=== PATIENT | male | born 1970 | race African-American/Black ===

== ENCOUNTER 2020-01-09 14:56 | Inpatient (IN) | payer OTHER ==
--- NOTE | 2020-01-09 15:17 | PDOC ---
History of Present Illness - General Chief Complaint: Headache Stated Complaint: SENT BY MD /ABN LABS/FEVER Time Seen by Provider: 01/09/20 15:16 - History of Present Illness Initial Comments: 01/09/20 15:32 49 M with HTN and lupus ( on hydroxychloroquine) came here from [facility] for PE r/o. Patient had elevated d-dimer of 625, and trop of 0.05, ultrasound of right lower extremity which showed negative result per patient. Patient currently denies SOB, chest pain. 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 He took excedrin and didn't help. Endorse photophobia, denies phonophobia. Patient don't usually have headache. He did endorse chest pain misternum about 4 days ago, on and off, no radiation, nonexertional in natural. Patient denies dyspnea, unilat leg swelling, however, did have right ankle swelling a few days ago. Patient had COVID back in August, no intubation needed. PMHX: as in HPI PSHX: none Meds: home meds. Tob: neg Etoh: neg Rec drugs: neg PCP: PCP in [place] [facility]. Resolution Specialist: Alek Rodriges MD. ROS GENERAL/CONSTITUTIONAL:+fever, no chills. No weakness. HEAD, EYES, EARS, NOSE AND THROAT: No change in vision. No ear pain or d ischarge. No sore throat. CARDIOVASCULAR: No chest pain or shortness of breath RESPIRATORY: No cough, wheezing, or hemoptysis. GASTROINTESTINAL: No nausea, vomiting, diarrhea or constipation. GENITOURINARY: No dysuria, frequency, or change in urination. MUSCULOSKELETAL: No joint or muscle swelling or pain. No neck or back pain. SKIN: No rash NEUROLOGIC: + headache, no vertigo, loss of consciousness, or change in strength/sensation. ENDOCRINE: No increased thirst. No abnormal weight change HEMATOLOGIC/LYMPHATIC: No anemia, easy bleeding, or history of blood clots. ALLERGIC/IMMUNOLOGIC: No hives or skin allergy. PE: tachycardic 107, fever of 101.9 (after already had tylenol). GENERAL: Awake, alert, and fully oriented, in no acute distress HEAD: No signs of trauma, normocephalic, atraumatic EYES: PERRLA, EOMI, sclera anicteric, conjunctiva clear ENT: Auricles normal inspection, hearing grossly normal, nares patent, oropharynx clear without exudates. Moist mucosa NECK: Normal ROM, supple, no lymphadenopathy, JVD, or masses LUNGS: No distress, speaks full sentences,right lung base crackle. HEART: Regular rate and rhythm, normal S1 and S2, no murmurs, rubs or gallops, peripheral pulses normal and equal bilaterally. ABDOMEN: Soft, nontender, normoactive bowel sounds. No guarding, no rebound. No masses EXTREMITIES : Normal inspection, Normal range of motion, no edema. No clubbing or cyanosis. NEUROLOGICAL: Cranial nerves II through XII grossly intact. Normal speech, normal gait, no focal sensorimotor deficits SKIN: Warm, Dry, normal turgor, no rashes or lesions noted MDM 49 M with HTN, Lupus (on hydroxychloroquine) presented here for elevated d-dimer and troponin. R/o PE. DDX including but not limited to: PE, ACS, infection. tension headache. W/U: -Labwork, CTA, EKG, LR fluid 1 L. 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 Alek Rodriges From [facility] [phone] (extension).2x . Couldn't get in touch. -EKG: normal sinus rhthym, vent rate 91. no ST elevation. -CTA to rule out PE showed no PE, moderate right lower lobe infiltrate. atelectatic changes left base. There is no 6mm thickness pericardial effusion at the apex. TX: vanco +zosyn +admission. - Patient agrees to stay. PORT Score: 47, risk class 1, 0.1 % mortality. MBMD sent. -elevated Liver enzymes ---RUQ ultrasound. -admit under [facility] 01/09/20 18:42 01/09/20 18:42 01/09/20 19:10 Past History - Medical History Allergies/Adverse Reactions: Allergies Allergy/AdvReac Type Severity Reaction Status Date / Time No Known Drug Allergies Allergy Verified 01/10/20 00:13 ABX AdvReac Severe Hives Uncoded 01/09/20 23:25 Home Medications: Ambulatory Orders Cholecalciferol (Vitamin D3) [Vitamin D -] 50,000 unit PO WEEKLY 01/10/20 Hydroxychloroquine Sulfate [Plaquenil] 400 mg PO DAILY 01/10/20 Losartan Potassium 100 mg PO DAILY 01/10/20 Apixaban [Eliquis] 5 mg PO BID #120 tablet 01/13/20 Cefuroxime Axetil [Ceftin -] 500 mg PO BID 4 Days #8 tablet 01/13/20 Doxycycline Hyclate [Vibramycin -] 100 mg PO BID@1000,1800 3 Days #6 capsule 01/13/20 COPD: No HTN: Yes - Immunization History Immunization Up to Date: No - Psycho-Social/Smoking History Smoking History: Never smoked Information on smoking cessation initiated: No - Substance Abuse Hx (Audit-C & DAST Scrn) How often the patient has a drink containing alcohol: Monthly or less How often the patient has six or more drinks on one occasion: Less than monthly Score: In Men: 4 or > Positive; In Women: 3 or > Positive: 2 Screen Result (Pos requires Nsg. Audit-10AR): Negative In the last yr the pt used illegal drug/Rx for NonMed reason: No Score: Yes response is considered Positive: 0 Screen Result (Positive result requires Nsg. DAST-10): Negative *Physical Exam - Vital Signs Last Vital Signs Temp Pulse Resp BP Pulse Ox 101.9 F H 107 H 20 130/84 97 01/09/20 15:01 01/09/20 15:01 01/09/20 15:01 01/09/20 15:01 01/09/20 15:01 ED Treatment Course - LABORATORY CBC & Chemistry Diagram: 01/13/20 08:45 01/13/20 08:45 Discharge - Discharge Information Problems reviewed: Yes Clinical Impression/Diagnosis: Headache, Fever, Chest pain, Pulmonary emboli Condition: Improved Disposition: HOME - Follow up/Referral - Patient Discharge Instructions - Post Discharge Activity
--- NOTE | 2020-01-09 15:49 | PDOC ---
Attending Attestation - Resident Resident Name: Al Ibarra - ED Attending Attestation I have performed the following: I have examined & evaluated the patient, The case was reviewed & discussed with the resident, I agree w/resident's findings & plan, Exceptions are as noted - HPI HPI: 01/09/20 15:44 49YOM with h/o SLE on hydroxychloroquine, who p/w several weeks of BLE intermittent swelling, non-exertional non-positional chest pain, as sent in by [facility] after having elevated D-dimer (629) and fever of 103 with negative CXR. Patient stated there he was COVID-19 positive back in August 2019. No specific leg with worsened discomfort, no skin changes, no palpitations, no cough or orthopnea. - Physicial Exam PE: 01/09/20 15:47 GENERAL: nontoxic-appearing, A/Ox4, no distress, answers questions jelly ropriately, pleasant adult male HEENT: PERRLA, EOMI, moist mucous membranes NECK/BACK: no midline ttp, no spinal step-off or deformity, no hematoma, full ROM, neck supple CARDIOVASCULAR: rapid regular rate, no MGR, strong peripheral pulses, capillary refill <2 seconds, extremities wwp, no edema LUNGS/RESPIRATORY: no respiratory distress, CTAB GI/ABDOMEN: symmetric [id number], normoactive BS, soft, no ttp, no midline pulsatile masses : no CVA tenderness MSK/EXTREMITIES: minimal posterior pedal edema, no muscle atrophy, no acute deformity SKIN: warm and dry, no pallor, no jaundice, no rash, no pathologic-appearing bruising, no skin breakdown, no cuts, no lesions NEUROLOGICAL: GCS 15, CN II-XII grossly intact, 5/5 strength proximally and distally, no facial droop - Medical Decision Making 01/09/20 15:49 49YOM with h/o SLE on hydroxychloroquine who presents from [facility] with fever, chest pain, BLE minimal swelling for months, and elevated D-dimer on their labs. 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 Initial Vital Signs Temp Pulse Resp BP Pulse Ox 101.9 F H 107 H 20 130/84 97 01/09/20 15:01 01/09/20 15:01 01/09/20 15:01 01/09/20 15:01 01/09/20 15:01 Most likely viral infection with c/f COVID-19 infection, possible PNA/bronchitis although if CXR was negative at [facility] less likely, but will repeat imaging here. Possible PE especially given d-dimer testing at . COPD/asthma/CHF exacerbation or other underlying lung disease possible contributing factor. Less likely influenza, bronchitis, other viral URI, laryngitis, tracheitis, etc. Provider Orders Category Date Time Status CHEST CTA [CT] Stat CT Scan 01/09/20 15:31 Ordered ELECTROCARDIOGRAM [CARD] Stat Cardiology 01/09/20 15:30 Ordered EKG needed NOW Care 01/09/20 15:30 Active Isolation Precautions As directed Care 01/09/20 15:30 Active CBC WITH DIFFERENTIAL Stat Lab 01/09/20 15:30 Uncollected COMP METABOLIC PANEL Stat Lab 01/09/20 15:30 Uncollected COVID-19 Stat Lab 01/09/20 15:30 Uncollected PT & APTT Stat Lab 01/09/20 15:32 Uncollected Troponin [CARDIAC PROFILE ([facility])] Stat Lab 01/09/20 15:31 Uncollected Lactated Ringers Solution Medication 01/09/20 15:52 Once 1,000 ml IV ONCE ONE IV Insert NOW Phy Order 01/09/20 15:41 Active Medications Generic Name Dose Route Start Last Admin Trade Name Freq PRN Reason Stop Dose Admin Lactated Ringer's 1,000 ml 01/09/20 15:52 Lactated Ringers Solution IV 01/09/20 15:53 ONCE ONE Patient is well appearing, do not anticipate admission unless workup yields PE or other serious diagnosis. Patient's care endorsed to ED team at the end of my shift pending results of workup, will decide on dispo based on findings. Heart Score/ECG Review #1 Sinus rhythm, rate 91, normal axis and intervals, no ischemic ST-T changes Discharge - Discharge Information Problems reviewed: Yes Clinical Impression/Diagnosis: Headache, Fever, Chest pain, Pulmonary emboli Condition: Guarded - Admission Yes - Follow up/Referral - Patient Discharge Instructions - Post Discharge Activity
[2020-01-09] MEDS ORDERED: LACTATED RINGERS SOLUTION 1000 ML INFUS.BAG IV ONE (15:52)
[2020-01-09 16:14] LABS: BASO % 0.7 % (0-2.0); EOS % 0.1 % (0-4.5); LYMPH % 4.9 % (8-40); MCH 29.4 pg (25.7-33.7); MCHC 33.4 g/dl (32.0-35.9); MEAN CELL VOLUME 88.1 fl (80-96); MEAN PLT VOLUME 8.9 fl (7.5-11.1); MONO % 4.7 % (3.8-10.2); NEUT % 89.6 % (42.8-82.8); PLATELET COUNT 130 K/MM3 (134-434); RBC 4.77 M/mm3 (4.00-5.60); RDW 13.3 % (11.9-15.9); WHITE BLOOD COUNT 12.9 K/mm3 (4.0-10.0)
[2020-01-09 16:20] LABS: INR 1.34 (0.83-1.09); PROTHROMBIN TIME (PATIENT) 15.9 SEC (9.7-13.0)
[2020-01-09 16:49] LABS: ALBUMIN 3.1 g/dl (3.4-5.0); BILIRUBIN,TOTAL 0.4 mg/dL (0.2-1); CALCIUM 8.8 mg/dL (8.5-10.1); CREATININE 1.7 mg/dL (0.55-1.3); POTASSIUM 4.3 mmol/L (3.5-5.1); TOT PROT 7.5 g/dl (6.4-8.2)
[2020-01-09] MEDS ORDERED: VANCOMYCIN 1 GM in D5W (PRE-DOCKED) 1,000 MG/250 ML IVPB ONE (17:34)
[2020-01-09] MEDS ORDERED: PIPERACILLIN/TAZOB 3.375 GM 3.375 GM in DEXTROSE 5%-WATER - 50 ML IVPB ONE (17:34)
[2020-01-09] MEDS ORDERED: PIPERACILLIN/TAZOB 3.375 GM 3.375 GM/50 ML BAG IVPB ONE (18:24)
[2020-01-09] MEDS ORDERED: ACETAMINOPHEN 325 MG TABLET (FP) PO ONE (18:37)
--- NOTE | 2020-01-09 19:00 | PDOC ---
*Physical Exam - Vital Signs Last Vital Signs Temp Pulse Resp BP Pulse Ox 101.9 F H 107 H 20 130/84 97 01/09/20 15:01 01/09/20 15:01 01/09/20 15:01 01/09/20 15:01 01/09/20 15:01 ED Treatment Course - LABORATORY CBC & Chemistry Diagram: 01/09/20 16:06 01/09/20 16:06 - ADDITIONAL ORDERS Additional order review: Laboratory Results 01/09/20 01/09/20 01/09/20 16:06 16:06 16:06 PT with INR 15.90 H INR 1.34 H PTT (Actin FS) 33.0 Sodium 138 Potassium 4.3 Chloride 103 Carbon Dioxide 28 Anion Gap 6 L BUN 12.0 Creatinine 1.7 H Est GFR (CKD-EPI)AfAm 54.45 Est GFR (CKD-EPI)NonAf 46.98 Random Glucose 116 H Calcium 8.8 Total Bilirubin 0.4 AST 99 H ALT 90 H Alkaline Phosphatase 121 H Creatine Kinase 137 Troponin I < 0.02 Total Protein 7.5 Albumin 3.1 L 01/09/20 16:06 RBC 4.77 MCV 88.1 MCHC 33.4 RDW 13.3 MPV 8.9 Neutrophils % 89.6 H Lymphocytes % 4.9 L Monocytes % 4.7 Eosinophils % 0.1 Basophils % 0.7 Medical Decision Making - Medical Decision Making 01/09/20 19:00 CTA RLL PNA SLE vanc zosyn DICKSON? fluids had covid get admit Discharge - Discharge Information Clinical Impression/Diagnosis: Headache, Fever, Chest pain - Follow up/Referral Referrals: ON STAFF,NOT [Primary Care Provider] - - Patient Discharge Instructions - Post Discharge Activity
[2020-01-09 19:20] LABS: URINE APPEARANCE CLEAR; URINE COLOR YELLOW
[2020-01-09 19:21] LABS: URINE BILIRUBIN NEGATIVE (NEGATIVE); URINE GLUCOSE (UA) NEGATIVE (NEGATIVE); URINE KETONE NEGATIVE (NEGATIVE); URINE LEUK ESTERASE NEGATIVE (NEGATIVE); URINE NITRITE NEGATIVE (NEGATIVE); URINE PROTEIN 100 (NEGATIVE); URINE RBC 26.8 /uL (0-23.9)
[2020-01-09 19:22] LABS: EPI CELLS 26.5 /uL (0-25.1); URINE BACTERIA 45.8 /uL (0-1359); URINE WBC 82.8 /uL (0-25.8)
--- NOTE | 2020-01-09 19:27 | PN ---
Teaching Attending Note Name of Resident: Sree Haddad ATTENDING PHYSICIAN STATEMENT I saw and evaluated the patient. I reviewed the resident's note and discussed the case with the resident. I agree with the resident's findings and plan as documented. SUBJECTIVE: Patient is a 49 year old man with a PMH of COVID-19 infection (August 2019; not hospitalized), Childhood asthma, Rheumatoid arthritis, HTN and SLE (on hydroxychloroquine) presents from [facility] for workup to rule out pulmonary embolism. He went to [facility] for several weeks of BLE intermittent swelling, non-exertional, non-positional chest pain and was noted to have elevated D-dimer (629) and fever of 103 with negative CXR. Troponin was 0.05 and ultrasound of right lower extremity was negative for DVT. Patient currently denies SOB, chest pain. 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 He took excedrin and didn't help. Endorse photophobia, denies phonophobia. Patient don't usually have headache. Patient denies abdominal pain, headache, nausea, vomiting, diarrhea, constipation, dysuria, frequency, urgency, melena, hematochezia or hematuria. Denies alcohol, tobacco or illicit drug use. No sick contacts or recent travels. Family history of DM in mother and brother. OBJECTIVE: Alert Vital Signs Period Temp Pulse Resp BP Sys/Baugh Pulse Ox Last 24 Hr 101.9 F-102.6 F 107 20 130/84 97 HEENT: No Jaundice, eye redness or discharge, PERRLA, EOMI. Normocephalic, atraumatic. External ears are normal and hearing is grossly intact. No nasal discharge. Neck: Supple, nontender. No palpable adenopathy or thyromegaly. No JVD Chest: Good effort. Clear to auscultation and percussion. Heart: Regular. No S3, rub or murmur Abdomen: Not distended, soft, nontender and no HSM. No rebound or guarding. Normal bowel sounds. Ext: Peripheral pulses intact. No leg edema. Skin: Warm and dry. No petechiae, rash or ecchymosis. Neuro: Alert. Oriented x3. CN 2-12 grossly intact. Sensation grossly intact in all four extremities and DTR are symmetric. Psych: Appropriate mood and affect. Good insight. Current Medications Generic Name Dose Route Start Last Admin Trade Name Zohra PRN Reason Stop Dose Admin Acetaminophen 975 mg 01/09/20 18:37 01/09/20 19:32 Tylenol - PO 01/09/20 18:38 975 mg ONCE ONE Administration Piperacillin Sod/Tazobactam 50 mls @ 100 mls/hr 01/09/20 17:34 01/09/20 19:09 Sod 3.375 gm/ Dextrose IVPB 01/09/20 18:03 100 mls/hr ONCE ONE Administration Protocol Lactated Ringer's 1,000 ml 01/09/20 15:52 01/09/20 16:19 Lactated Ringers Solution IV 01/09/20 15:53 1,000 ml ONCE ONE Administration Vancomycin HCl 1,000 mg 01/09/20 17:34 01/09/20 18:30 Vancomycin (Pre-Docked) IVPB 01/09/20 17:35 1,000 mg ONCE ONE Administration Protocol Abnormal Lab Results 01/09/20 01/09/20 01/09/20 16:06 16:06 16:06 WBC 12.9 H Plt Count 130 L Absolute Neuts (auto) 11.5 H Neutrophils % 89.6 H Lymphocytes % 4.9 L PT with INR 15.90 H INR 1.34 H Anion Gap 6 L Creatinine 1.7 H Random Glucose 116 H AST 99 H ALT 90 H Alkaline Phosphatase 121 H Albumin 3.1 L Ur Specific [place] Urine Blood 01/09/20 18:40 WBC Plt Count Absolute Neuts (auto) Neutrophils % Lymphocytes % PT with INR INR Anion Gap Creatinine Random Glucose AST ALT Alkaline Phosphatase Albumin Ur Specific [place] 1.047 H Urine Blood 1+ H Current Medications Generic Name Dose Route Start Last Admin Trade Name Zohra PRN Reason Stop Dose Admin Acetaminophen 975 mg 01/09/20 18:37 01/09/20 19:32 Tylenol - PO 01/09/20 18:38 975 mg ONCE ONE Administration Heparin Sodium (Porcine) 5,000 unit 01/09/20 23:30 Heparin - SQ TID KENYA Piperacillin Sod/Tazobactam 50 mls @ 100 mls/hr 01/09/20 17:34 01/09/20 19:09 Sod 3.375 gm/ Dextrose IVPB 01/09/20 18:03 100 mls/hr ONCE ONE Administration Protocol Lactated Ringer's 1,000 ml 01/09/20 15:52 01/09/20 16:19 Lactated Ringers Solution IV 01/09/20 15:53 1,000 ml ONCE ONE Administration Vancomycin HCl 1,000 mg 01/09/20 17:34 01/09/20 18:30 Vancomycin (Pre-Docked) IVPB 01/09/20 17:35 1,000 mg ONCE ONE Administration Protocol ASSESSMENT AND PLAN: 1. Sepsis due to Pneumonia - CTA chest/thorax showed no PE, but moderate right lower lobe infiltrate, atelectatic changes in left base and pericardial effusion. Sepsis workup done and patient started on IV Vancomycin, IV Zosyn and will give IV NS. Concerned about meningitis - consulted Neurology - will get a head CT stat, add IV Ceftriaxone 2 gm to current regimen and consult IR for spinal tap. Consult ID, Rheumatology and Cardiology. Elevated LFTs are unexplained. Will get upper abdominal sonogram, hepatitis serology and trend LFTs. EKG shows NSR at 91/minute and QTc [address]-T wave changes. Troponin here is negative. Viral testing for COVID-19 ordered and patient placed on airborne, droplet and contact isolation. Will continue comprehensive care for all of patients comorbid conditions including SLE care. 2. Hypoalbuminemia - Possibly due to combined effects of proteinuria, malnutrition and inflammation associated with comorbid conditions. Will ensure adequate dietary protein intake and also consult beauty operator. 3. DICKSON Cause unclear. Will get kidney sonogram, hydrate gently, monitor urine output and consult Nephrology. Avoid nephrotoxic agents such as NSAIDS, aminoglycosides, contrast dyes and certain Alternative medicine products. 4. Obesity Counseled on the risks associated with obesity. Will provide patient all the necessary assistance, counseling and positive reinforcement to facilitate weight loss. Consult beauty operator. 5. DVT prophylaxis - Heparin 5000u sq tid. 6. Advance directives - Full code
--- NOTE | 2020-01-09 23:15 | HP ---
CHIEF COMPLAINT: PCP: HISTORY OF PRESENT ILLNESS: 49 YO M PMH HTN, lupus (on hydroxychloroquine), COVID + in 08/2019 (was not hospitalized), rheumatoid arthritis (L hip) childhood asthma presents to ED from [facility] to r/o Pulmonary emobolism. Pt had 2 nights of 8/10 pressure- like constant headache, that was associated with photophobia. This is the first the patient developed a headache like this and the patient does not usually have head pains like this. Pt was painting a room the day the headache first started. He then developed a fever afterwards, and starting getting chills last night that prompted the patient to seek care urgencare. At UrgentCare he was found to have a 103F, elevated D dimer of 625. CXR was negative for acute pathology and ultrasound of the legs ruled out PE. Denies myalgias, CP, SOB. Denies recent travel. C/o complains of intermittent non-exertional, nonradiating Chest pain/pressure that began 4 days go. Described as a being "Punched in the stomach." Also, c/o chronic intermittent RLE swelling at the lateral malleolus. Endorses that the edema first started after his COVID had resolved. He has been taking 5 mg steroids daily for the past month, which he reported improved his edema. Denied leg pain. 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 mother of COVID Allergies ABX Adverse Reaction (Severe, Uncoded 01/09/20 23:12) Hives Pt states he had abx that caused hives in 1997, pt does not recall abx name HOME MEDICATIONS: REVIEW OF SYSTEMS CONSTITUTIONAL: Absent: fever, chills, diaphoresis, generalized weakness, malaise, loss of appetite, weight change HEENT: Absent: rhinorrhea, nasal congestion, throat pain, throat swelling, difficulty swallowing, mouth swelling, ear pain, eye pain, visual changes CARDIOVASCULAR: Absent: chest pain, syncope, palpitations, irregular heart rate, lightheadedness, peripheral edema RESPIRATORY: Absent: cough, shortness of breath, dyspnea with exertion, orthopnea, wheezing, stridor, hemoptysis GASTROINTESTINAL: Absent: abdominal pain, abdominal distension, nausea, vomiting, diarrhea, constipation, melena, hematochezia GENITOURINARY: Absent: dysuria, frequency, urgency, hesitancy, hematuria, flank pain, genital pain MUSCULOSKELETAL: Absent: myalgia, arthralgia, joint swelling, back pain, neck pain SKIN: Absent: rash, itching, pallor HEMATOLOGIC/IMMUNOLOGIC: Absent: easy bleeding, easy bruising, lymphadenopathy, frequent infections ENDOCRINE: Absent: unexplained weight gain, unexplained weight loss, heat intolerance, cold intolerance NEUROLOGIC: Absent: headache, focal weakness or paresthesias, dizziness, unsteady gait, seizure, mental status changes, bladder or bowel incontinence PSYCHIATRIC: Absent: anxiety, depression, suicidal or homicidal ideation, hallucinations. PHYSICAL EXAMINATION Vital Signs - 24 hr 01/09/20 01/09/20 01/09/20 15:01 18:50 20:14 Temperature 101.9 F H 102.6 F H 103.2 F H Pulse Rate 107 H 107 H Respiratory 20 18 Rate Blood Pressure 130/84 139/75 O2 Sat by Pulse 97 95 Oximetry (%) GENERAL: Awake, alert, and fully oriented, in no acute distress. HEAD: Normal with no signs of trauma. EYES: Pupils equal, round and reactive to light, extraocular movements intact, sclera anicteric, conjunctiva clear. No lid lag. EARS, NOSE, THROAT: Ears normal, nares patent, oropharynx clear without exudat es. Moist mucous membranes. NECK: Normal range of motion, supple. LUNGS: R lung base crackle. Wheezing in R upper lobe. No accessory muscle use. HEART: Regular rate and rhythm, normal S1 and S2 without murmur, rub or gallop. ABDOMEN: Soft, nontender, not distended, normoactive bowel sounds MUSCULOSKELETAL: Normal range of motion at all joints. No bony deformities or tenderness. No CVA tenderness. UPPER EXTREMITIES: 2+ pulses, warm, well-perfused. No cyanosis. No clubbing. No peripheral edema. LOWER EXTREMITIES: 2+ pulses, warm, well-perfused. No calf tenderness. No peripheral edema. NEUROLOGICAL: Cranial nerves II-XII intact. Normal speech. Normal gait. PSYCHIATRIC: Cooperative. Good eye contact. Appropriate mood and affect. Laboratory Results - last 24 hr 01/09/20 01/09/20 01/09/20 16:06 16:06 16:06 WBC 12.9 H RBC 4.77 Hgb 14.0 Hct 42.0 MCV 88.1 MCH 29.4 MCHC 33.4 RDW 13.3 Plt Count 130 L MPV 8.9 Absolute Neuts (auto) 11.5 H Neutrophils % 89.6 H Lymphocytes % 4.9 L Monocytes % 4.7 Eosinophils % 0.1 Basophils % 0.7 Nucleated RBC % 0 PT with INR 15.90 H INR 1.34 H PTT (Actin FS) 33.0 Sodium Potassium Chloride Carbon Dioxide Anion Gap BUN Creatinine Est GFR (CKD-EPI)AfAm Est GFR (CKD-EPI)NonAf Random Glucose Calcium Total Bilirubin AST ALT Alkaline Phosphatase Creatine Kinase 137 Troponin I < 0.02 Total Protein Albumin Urine Color Urine Appearance Urine pH Ur Specific [place] Urine Protein Urine Glucose (UA) Urine Ketones Urine Blood Urine Nitrite Urine Bilirubin Urine Urobilinogen Ur Leukocyte Esterase Urine WBC (Auto) Urine RBC (Auto) U Epithel Cells (Auto) Urine Bacteria (Auto) 01/09/20 01/09/20 16:06 18:40 WBC RBC Hgb Hct MCV MCH MCHC RDW Plt Count MPV Absolute Neuts (auto) Neutrophils % Lymphocytes % Monocytes % Eosinophils % Basophils % Nucleated RBC % PT with INR INR PTT (Actin FS) Sodium 138 Potassium 4.3 Chloride 103 Carbon Dioxide 28 Anion Gap 6 L BUN 12.0 Creatinine 1.7 H Est GFR (CKD-EPI)AfAm 54.45 Est GFR (CKD-EPI)NonAf 46.98 Random Glucose 116 H Calcium 8.8 Total Bilirubin 0.4 AST 99 H ALT 90 H Alkaline Phosphatase 121 H Creatine Kinase Troponin I Total Protein 7.5 Albumin 3.1 L Urine Color Yellow Urine Appearance Clear Urine pH 6.0 Ur Specific [place] 1.047 H Urine Protein 100 Urine Glucose (UA) Negative Urine Ketones Negative Urine Blood 1+ H Urine Nitrite Negative Urine Bilirubin Negative Urine Urobilinogen 1.0 Ur Leukocyte Esterase Negative Urine WBC (Auto) 82.8 Urine RBC (Auto) 26.8 U Epithel Cells (Auto) 26.5 Urine Bacteria (Auto) 45.8 EKG: NSR, 91 bpm, QTC 393 ASSESSMENT/PLAN: 49 YO M PMH HTN, lupus (on hydroxychloroquine), COVID + in 08/2019 (was not hospitalized), rheumatoid arthritis (L hip) childhood asthma presents to ED from [facility] to r/o Pulmonary embolism. Found to be septic 2/2 possibly PNA VS COVID vs meningitis. . #Sepsis 2/2 PNA Vs COVID vs Meningitis -102.6 F, HR 107, WBCs 12.9 - CTA: Moderate R lower lobe infiltrate, atelectaic changes L base -Started on IV vanc & zosyn -concerned about meningitis. ordered CTH -d/w neurology: -f/u ucx, blood cx -2 gm ceftriaxone -ESR -CRP -IBRAHIMA -f/u ID, rheum c/s -consult IR for spinal tap -f/u COVID. at urgent care center, d dimer 625. H/o COVID + #Transaminitis -unexplained. trend LFTs -f/u RUQ US -f/u hep panel #DICKSON Cr 1.7 -kidney US -NS@75 ml/hr -Avoid nephrotoxic agents #Hypoalbuminemia -f/u 2/2 possibly to proteinuria or inflammation. 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 - New Patient This patient is new to me today: Yes Date on this admission: 01/09/20 - Critical Care Critical Care patient: No ATTENDING PHYSICIAN STATEMENT I saw and evaluated the patient. I reviewed the resident's note and discussed the case with the resident. I agree with the resident's findings and plan as documented. SUBJECTIVE: OBJECTIVE: ASSESSMENT AND PLAN:
[2020-01-10] MEDS ORDERED: ACETAMINOPHEN 325 MG TABLET (FP) PO ONE ×2 (00:04→06:27)
[2020-01-10] MEDS ORDERED: CEFTRIAXONE 2 GM in DEXTROSE 5%-WATER - 50 ML IVPB ONE (00:15)
[2020-01-10] MEDS ORDERED: DEXTROSE 5%-WATER - 50 ML IVPB ONE ×2 (00:18→09:21)
[2020-01-10] MEDS: SODIUM CHLORIDE 1,000 ML IV SCH (01:03)
[2020-01-10] MEDS: HEPARIN NA (PORCINE) 5,000 UNITS/ML 1ML VIAL SQ SCH ×4 (01:05→21:38)
--- NOTE | 2020-01-10 08:09 | CON.CARD ---
Consult Consult Specialty:: cardio - History of Present Illness Chief Complaint: SLADE History of Present Illness: 49 YO M PMH HTN, lupus (on hydroxychloroquine), COVID + in 08/2019 (was not hospitalized), rheumatoid arthritis (L hip) childhood asthma presents to ED from [facility] to r/o Pulmonary embolism. PT had 2 nights of 8/10 pressure-like constant headache, that was associated with photophobia. This is the first the patient developed a headache like this and the patient does not usually have head pains like this. He then developed a fever afterwards, and starting getti ng chills last night that prompted the patient to seek care urgencare. Denies myalgias, CP, SOB. At Urgent Care he was found to have a 103F, elevated D dimer of 625. CXR was negative for acute pathology and ultrasound of the legs ruled out PE. Denies recent travel. Also complains of intermittent non-exertional, nonradiating Chest pain. occured 5d ago, ? after drinking energy drink. located upper abdomen/lower rib margin, non-radiating. came and went, mild intensity. continued until 1 day GLASS SANDER BELT--none at present. no bloating, nausea. no assctd sob. "sharp pain" in this area occurred this AM, fleeting duration for couple seconds. currently feels well. denies any known recent Covid + contacts. ER course was notable for: (1) 102.6 F, HR 107, RR20 (2) WBCs 12.9 (3) Cr 1.7 (4) AST/ALT 99/90, Alkphos 121 (5) CTA: Moderate R lower lobe infiltrate, atelectaic changes L base - Smoking History Smoking history: Never smoked Have you smoked in the past 12 months: No Home Medications - Allergies Allergies/Adverse Reactions: Allergies Allergy/AdvReac Type Severity Reaction Status Date / Time No Known Drug Allergies Allergy Verified 01/10/20 00:13 ABX AdvReac Severe Hives Uncoded 01/09/20 23:25 Vital Signs: Vital Signs Temperature 103.1 F H 01/10/20 06:00 Pulse Rate 112 H 01/10/20 06:00 Respiratory Rate 18 01/10/20 06:00 Blood Pressure 138/80 01/10/20 06:00 O2 Sat by Pulse Oximetry (%) 96 01/10/20 06:29 - Other Data Labs, Other Data: CBC, BMP 01/09/20 16:06 01/09/20 16:06 INR, PTT INR 1.34 (0.83-1.09) H 01/09/20 16:06 Troponin, BNP 01/09/20 01/10/20 16:06 01:45 Troponin I < 0.02 < 0.02 Troponin, BNP 01/09/20 01/10/20 16:06 01:45 Troponin I < 0.02 < 0.02 Assessment/Plan ECG: NSR, WNL CT chest, prelim: RLL infiltrate SLADE, hi fever, DICKSON, mild elevation LFTs, elevated d-Dimer, atypical CP: -describes subxiphoid location, atypical sx. -infiltrate on CT chest--receiving abx--per hospitalist (may explain upper abdominal discomfort) -s/p Covid 09/13, current sx's suspious as well--f/u office CT read, f/u Covid PCR -trop neg x 2, ECG normal--no further cardiac w/u indicated -O2 sat 90% warren--supplemental NC oxygen as doing -baseline renal fxn unknown--monitor trend HTN: -bp controlled here SLE: -per hospitalist
[2020-01-10] MEDS ORDERED: PIPERACILLIN/TAZOB 3.375 GM 3.375 GM in DEXTROSE 5%-WATER - 50 ML IVPB ONE (08:17)
[2020-01-10 08:25] LABS: BASO % 0.6 % (0-2.0); EOS % 0.2 % (0-4.5); HEMOGLOBIN 13.1 GM/dL (11.7-16.9); LYMPH % 3.6 % (8-40); MCHC 33.7 g/dl (32.0-35.9); MEAN CELL VOLUME 86.1 fl (80-96); MEAN PLT VOLUME 9.1 fl (7.5-11.1); MONO % 5.6 % (3.8-10.2); PLATELET COUNT 115 K/MM3 (134-434); RBC 4.53 M/mm3 (4.00-5.60); RDW 13.3 % (11.9-15.9); WHITE BLOOD COUNT 11.7 K/mm3 (4.0-10.0)
[2020-01-10] MEDS ORDERED: ACETAMINOPHEN 1000 MG/100 ML VIAL (NON FORMULARY) IVPB PRN (08:48)
[2020-01-10 09:07] LABS: ALBUMIN 2.4 g/dl (3.4-5.0); BILIRUBIN,TOTAL 0.7 mg/dL (0.2-1); BLOOD UREA NITROGEN 8.7 mg/dL (7-18); CALCIUM 8.2 mg/dL (8.5-10.1); CREATININE 1.5 mg/dL (0.55-1.3); MAGNESIUM 1.9 mg/dL (1.8-2.4); PHOSPHOROUS 2.5 mg/dL (2.5-4.9); POTASSIUM 4.1 mmol/L (3.5-5.1); TOT PROT 6.4 g/dl (6.4-8.2)
[2020-01-10] MEDS ORDERED: PIPERACILLIN/TAZOBACTAM 3.375 GM VIAL IVPB ONE (09:21)
[2020-01-10] MEDS ORDERED: CEFTRIAXONE 2 GM in DEXTROSE 5%-WATER 100 ML IVPB SCH (10:00)
--- NOTE | 2020-01-10 13:36 | PN ---
Physical Exam: SUBJECTIVE: Patient seen and examined. He reports headache is resolved. When lying in bed, he does not experience chest pain or shortness of breath. OBJECTIVE: Vital Signs Period Temp Pulse Resp BP Sys/Baugh Pulse Ox Last 24 Hr 100.4 F-103.2 F 96-112 18-20 130-153/75-87 90-98 GENERAL: A&Ox3, not in distress. HEAD: Atraumatic. EYES: PERRL, EOM intact. ENT: Ears normal, nares patent, moist mucous membranes. NECK: Trachea midline, full range of motion, negative Brudzinski sign. LUNGS: Clear to auscultation bilaterally. HEART: RRR, no murmur. ABDOMEN: Soft, nontender, nondistended, normoactive bowel sounds. EXTREMITIES: Warm, well-perfused, no edema. NEUROLOGICAL: Cranial nerves II through XII grossly intact. Normal speech. PSYCH: Normal mood, normal affect. SKIN: Warm, dry, normal turgor, no rashes or lesions noted. Laboratory Results - last 24 hr 01/09/20 01/09/20 01/09/20 16:06 16:06 16:06 WBC 12.9 H RBC 4.77 Hgb 14.0 Hct 42.0 MCV 88.1 MCH 29.4 MCHC 33.4 RDW 13.3 Plt Count 130 L MPV 8.9 Absolute Neuts (auto) 11.5 H Neutrophils % 89.6 H Lymphocytes % 4.9 L Monocytes % 4.7 Eosinophils % 0.1 Basophils % 0.7 Nucleated RBC % 0 ESR PT with INR 15.90 H INR 1.34 H PTT (Actin FS) 33.0 Sodium Potassium Chloride Carbon Dioxide Anion Gap BUN Creatinine Est GFR (CKD-EPI)AfAm Est GFR (CKD-EPI)NonAf Random Glucose Calcium Phosphorus Magnesium Total Bilirubin AST ALT Alkaline Phosphatase Creatine Kinase 137 Troponin I < 0.02 C-Reactive Protein Total Protein Albumin Urine Color Urine Appearance Urine pH Ur Specific [place] Urine Protein Urine Glucose (UA) Urine Ketones Urine Blood Urine Nitrite Urine Bilirubin Urine Urobilinogen Ur Leukocyte Esterase Urine WBC (Auto) Urine RBC (Auto) U Epithel Cells (Auto) Urine Bacteria (Auto) COVID-19 (AIDE) 01/09/20 01/09/20 01/09/20 16:06 18:15 18:40 WBC RBC Hgb Hct MCV MCH MCHC RDW Plt Count MPV Absolute Neuts (auto) Neutrophils % Lymphocytes % Monocytes % Eosinophils % Basophils % Nucleated RBC % ESR PT with INR INR PTT (Actin FS) Sodium 138 Potassium 4.3 Chloride 103 Carbon Dioxide 28 Anion Gap 6 L BUN 12.0 Creatinine 1.7 H Est GFR (CKD-EPI)AfAm 54.45 Est GFR (CKD-EPI)NonAf 46.98 Random Glucose 116 H Calcium 8.8 Phosphorus Magnesium Total Bilirubin 0.4 AST 99 H ALT 90 H Alkaline Phosphatase 121 H Creatine Kinase Troponin I C-Reactive Protein Total Protein 7.5 Albumin 3.1 L Urine Color Yellow Urine Appearance Clear Urine pH 6.0 Ur Specific [place] 1.047 H Urine Protein 100 Urine Glucose (UA) Negative Urine Ketones Negative Urine Blood 1+ H Urine Nitrite Negative Urine Bilirubin Negative Urine Urobilinogen 1.0 Ur Leukocyte Esterase Negative Urine WBC (Auto) 82.8 Urine RBC (Auto) 26.8 U Epithel Cells (Auto) 26.5 Urine Bacteria (Auto) 45.8 COVID-19 (AIDE) Not detected 01/10/20 01/10/20 01/10/20 01:45 01:45 01:45 WBC RBC Hgb Hct MCV MCH MCHC RDW Plt Count MPV Absolute Neuts (auto) Neutrophils % Lymphocytes % Monocytes % Eosinophils % Basophils % Nucleated RBC % ESR 90 H PT with INR INR PTT (Actin FS) Sodium Potassium Chloride Carbon Dioxide Anion Gap BUN Creatinine Est GFR (CKD-EPI)AfAm Est GFR (CKD-EPI)NonAf Random Glucose Calcium Phosphorus Magnesium Total Bilirubin AST ALT Alkaline Phosphatase Creatine Kinase Troponin I < 0.02 C-Reactive Protein 33.3 H Total Protein Albumin Urine Color Urine Appearance Urine pH Ur Specific [place] Urine Protein Urine Glucose (UA) Urine Ketones Urine Blood Urine Nitrite Urine Bilirubin Urine Urobilinogen Ur Leukocyte Esterase Urine WBC (Auto) Urine RBC (Auto) U Epithel Cells (Auto) Urine Bacteria (Auto) COVID-19 (AIDE) 01/10/20 01/10/20 07:42 07:42 WBC 11.7 H RBC 4.53 Hgb 13.1 Hct 39.0 MCV 86.1 MCH 29.0 MCHC 33.7 RDW 13.3 Plt Count 115 L MPV 9.1 Absolute Neuts (auto) 10.6 H Neutrophils % 90.0 H Lymphocytes % 3.6 L D Monocytes % 5.6 Eosinophils % 0.2 D Basophils % 0.6 Nucleated RBC % 0 ESR PT with INR INR PTT (Actin FS) Sodium 139 Potassium 4.1 Chloride 106 Carbon Dioxide 23 Anion Gap 11 BUN 8.7 Creatinine 1.5 H Est GFR (CKD-EPI)AfAm 63.34 Est GFR (CKD-EPI)NonAf 54.65 Random Glucose 96 Calcium 8.2 L Phosphorus 2.5 Magnesium 1.9 Total Bilirubin 0.7 AST 76 H ALT 88 H Alkaline Phosphatase 140 H Creatine Kinase Troponin I C-Reactive Protein Total Protein 6.4 Albumin 2.4 L Urine Color Urine Appearance Urine pH Ur Specific [place] Urine Protein Urine Glucose (UA) Urine Ketones Urine Blood Urine Nitrite Urine Bilirubin Urine Urobilinogen Ur Leukocyte Esterase Urine WBC (Auto) Urine RBC (Auto) U Epithel Cells (Auto) Urine Bacteria (Auto) COVID-19 (AIDE) Active Medications Generic Name Dose Route Start Last Admin Trade Name Freq PRN Reason Stop Dose Admin Acetaminophen 1,000 mg 01/10/20 08:48 Ofirmev Injection - IVPB 01/11/20 08:48 Q8H PRN FEVER Heparin Sodium (Porcine) 5,000 unit 01/09/20 23:30 01/10/20 06:12 Heparin - SQ 5,000 unit TID KENYA Administration Sodium Chloride 1,000 mls @ 75 mls/hr 01/09/20 23:45 01/10/20 01:03 Normal Saline - IV 75 mls/hr ASDIR KENYA Administration Ceftriaxone Sodium 2 gm/ 100 mls @ 100 mls/hr 01/11/20 10:00 Dextrose IVPB DAILY KENYA Protocol ASSESSMENT/PLAN: Pt is a 49 y/o male with HTN, SLE (on hydroxychloroquine), COVID + in 08/2019 (treated at home), OA (L hip) who presents to ED from [facility] to r/o Pulmonary embolism. Pt was found to be septic. #Sepsis 2/2 PNA vs less likely meningitis vs less likely PE -improvement in fever with Tylenol and ice packs -leukocytosis still present (11.7) but improving -CTA: Moderate R lower lobe infiltrate, atelectaic changes L base, no evidence of PE, small pericardial effusion -elevated ESR/CRP -doxycycline -ceftriaxone -neurology consult for SLADE -pulmonary consult for dyspnea -ID consult for abx recs -rheum consult for SLE recs -cardiology consult for small pericardial effusion- not symptomatic -IR consult for LP -f/u COVID. at urgent care center, d dimer 625. H/o COVID + -echo #Transaminitis -U/S- non-specific gallbladder wall thickening which could be acute/chronic cholecystitis or hepatitis or systemic disease, no stone observed -hepatitis panel ordered -monitor labs #DICKSON -Cr 1.7 -renal U/S- equivocal slightly increased right renal cortical echogenicity which could be on the basis of medical disease -nephrology consult- obtain records, unsure of baseline #SLE -continue hydroxychloroquine -monitor QTc #osteoarthritis -Tylenol DVT ppx Heparin sq TID FEN -NS@75 ml/hr -monitor lytes -sodium controlled diet dispo med/surg FULL CODE Visit type - Emergency Visit Emergency Visit: Yes ED Registration Date: 01/09/20 Care time: The patient presented to the Emergency Department on the above date and was hospitalized for further evaluation of their emergent condition. - New Patient This patient is new to me today: Yes Date on this admission: 01/10/20 - Critical Care Critical Care patient: No ATTENDING PHYSICIAN STATEMENT I saw and evaluated the patient. I reviewed the resident's note and discussed the case with the resident. I agree with the resident's findings and plan as documented. SUBJECTIVE: OBJECTIVE: ASSESSMENT AND PLAN:
--- NOTE | 2020-01-10 14:22 | CON.ID ---
Consult - History of Present Illness History of Present Illness: 49 y.o. male with PMH of RA, SLE on Hydroxychloroquine, renal insufficiency, COVID + in August 2019 (fever at the time, treated with Zpak, resolved) , and obesity presents with c/o fever, H/A, intermittent chest pain and LE swelling. States he began experiencing chest discomfort (mainly Rt sided, intermittent, lasting about 5 min, about 2x/day) several days ago along with intermittent LE swelling (since COVID diagnosis as per pt) . His headaches have been constant and severe, located mainly "behind eyes" and in frontal region. 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 He denies neck stiffness but reports photophobia. Was seen in Urgent care 2 days ago and noted to have temp of 103F and sent to the ER yesterday. CXR without infiltrates and RLE US reportedly negative for DVT. In the ER, he was febrile to 103.1F with mild leukocytosis. O2 sat at one point 90%. Chest CT reveals a RLL infiltrate. Creatinine and LFTs slightly elevated with US notable for mild GB wall thickening without evidence of stones. Started on empiric antibiotics. Currently he states he is feeling better with less intense SLADE. Had temp of 102F this a.m. At bedside noted to be coughing and producing thick yellow phlegm. No shortness of breath, 99% O2 sat on RA. No current chest pain. - History Source History Provided By: Patient Limitations to Obtaining History: No Limitations - Past Medical History Infectious Disease: Yes: Other (COVID + , August 2019) Rheumatology: Yes: Lupus, Rheumatoid Arthritis - Smoking History Smoking history: Never smoked Have you smoked in the past 12 months: No - Social History Usual Living Arrangement: With Significant Other History of Recent Travel: No Home Medications - Allergies Allergies/Adverse Reactions: Allergies Allergy/AdvReac Type Severity Reaction Status Date / Time No Known Drug Allergies Allergy Verified 01/10/20 00:13 ABX AdvReac Severe Hives Uncoded 01/09/20 23:25 Review of Systems - Review of Systems Constitutional: reports: Fever Eyes: reports: No Symptoms Neck: reports: No Symptoms Cardiovascular: reports: No Symptoms Respiratory: reports: Cough Gastrointestinal: reports: No Symptoms Genitourinary: reports: No Symptoms Musculoskeletal: reports: No Symptoms Integumentary: reports: No Symptoms Neurological: reports: Headache (minimal) Endocrine: reports: No Symptoms Hematology/Lymphatic: reports: No Symptoms Psychiatric: reports: No Symptoms Physical Exam Vital Signs: Vital Signs Temperature 100.4 F H 01/10/20 12:35 Pulse Rate 96 H 01/10/20 12:35 Respiratory Rate 20 01/10/20 12:35 Blood Pressure 153/87 01/10/20 12:35 O2 Sat by Pulse Oximetry (%) 98 01/10/20 12:35 Constitutional: Yes: Well Nourished, No Distress, Calm Eyes: Yes: Conjunctiva Clear, EOM Intact HENT: Yes: Atraumatic, Normocephalic Neck: Yes: Supple Cardiovascular: Yes: Tachycardia Respiratory: Yes: Diminished (slightly in Rt base) Gastrointestinal: Yes: Normal Bowel Sounds, Soft Renal/: Yes: WNL Musculoskeletal: Yes: WNL Extremities: Yes: WNL Edema: No Integumentary: Yes: WNL Neurological: Yes: Alert, Oriented Psychiatric: Yes: Alert Labs: CBC, BMP 01/10/20 07:42 01/10/20 07:42 Laboratory Tests 01/09/20 01/09/20 01/09/20 16:06 16:06 16:06 WBC 12.9 H RBC 4.77 Hgb 14.0 Hct 42.0 MCV 88.1 MCH 29.4 MCHC 33.4 RDW 13.3 Plt Count 130 L MPV 8.9 Absolute Neuts (auto) 11.5 H Neutrophils % 89.6 H Lymphocytes % 4.9 L Monocytes % 4.7 Eosinophils % 0.1 Basophils % 0.7 Nucleated RBC % 0 ESR PT with INR 15.90 H INR 1.34 H PTT (Actin FS) 33.0 Sodium Potassium Chloride Carbon Dioxide Anion Gap BUN Creatinine Est GFR (CKD-EPI)AfAm Est GFR (CKD-EPI)NonAf Random Glucose Calcium Phosphorus Magnesium Total Bilirubin AST ALT Alkaline Phosphatase Creatine Kinase 137 Troponin I < 0.02 C-Reactive Protein Total Protein Albumin Urine Color Urine Appearance Urine pH Ur Specific [place] Urine Protein Urine Glucose (UA) Urine Ketones Urine Blood Urine Nitrite Urine Bilirubin Urine Urobilinogen Ur Leukocyte Esterase Urine WBC (Auto) Urine RBC (Auto) U Epithel Cells (Auto) Urine Bacteria (Auto) COVID-19 (AIDE) 01/09/20 01/09/20 01/09/20 16:06 18:15 18:40 WBC RBC Hgb Hct MCV MCH MCHC RDW Plt Count MPV Absolute Neuts (auto) Neutrophils % Lymphocytes % Monocytes % Eosinophils % Basophils % Nucleated RBC % ESR PT with INR INR PTT (Actin FS) Sodium 138 Potassium 4.3 Chloride 103 Carbon Dioxide 28 Anion Gap 6 L BUN 12.0 Creatinine 1.7 H Est GFR (CKD-EPI)AfAm 54.45 Est GFR (CKD-EPI)NonAf 46.98 Random Glucose 116 H Calcium 8.8 Phosphorus Magnesium Total Bilirubin 0.4 AST 99 H ALT 90 H Alkaline Phosphatase 121 H Creatine Kinase Troponin I C-Reactive Protein Total Protein 7.5 Albumin 3.1 L Urine Color Yellow Urine Appearance Clear Urine pH 6.0 Ur Specific [place] 1.047 H Urine Protein 100 Urine Glucose (UA) Negative Urine Ketones Negative Urine Blood 1+ H Urine Nitrite Negative Urine Bilirubin Negative Urine Urobilinogen 1.0 Ur Leukocyte Esterase Negative Urine WBC (Auto) 82.8 Urine RBC (Auto) 26.8 U Epithel Cells (Auto) 26.5 Urine Bacteria (Auto) 45.8 COVID-19 (AIDE) Not detected 01/10/20 01/10/20 01/10/20 01:45 01:45 01:45 WBC RBC Hgb Hct MCV MCH MCHC RDW Plt Count MPV Absolute Neuts (auto) Neutrophils % Lymphocytes % Monocytes % Eosinophils % Basophils % Nucleated RBC % ESR 90 H PT with INR INR PTT (Actin FS) Sodium Potassium Chloride Carbon Dioxide Anion Gap BUN Creatinine Est GFR (CKD-EPI)AfAm Est GFR (CKD-EPI)NonAf Random Glucose Calcium Phosphorus Magnesium Total Bilirubin AST ALT Alkaline Phosphatase Creatine Kinase Troponin I < 0.02 C-Reactive Protein 33.3 H Total Protein Albumin Urine Color Urine Appearance Urine pH Ur Specific [place] Urine Protein Urine Glucose (UA) Urine Ketones Urine Blood Urine Nitrite Urine Bilirubin Urine Urobilinogen Ur Leukocyte Esterase Urine WBC (Auto) Urine RBC (Auto) U Epithel Cells (Auto) Urine Bacteria (Auto) COVID-19 (AIDE) 01/10/20 01/10/20 07:42 07:42 WBC 11.7 H RBC 4.53 Hgb 13.1 Hct 39.0 MCV 86.1 MCH 29.0 MCHC 33.7 RDW 13.3 Plt Count 115 L MPV 9.1 Absolute Neuts (auto) 10.6 H Neutrophils % 90.0 H Lymphocytes % 3.6 L D Monocytes % 5.6 Eosinophils % 0.2 D Basophils % 0.6 Nucleated RBC % 0 ESR PT with INR INR PTT (Actin FS) Sodium 139 Potassium 4.1 Chloride 106 Carbon Dioxide 23 Anion Gap 11 BUN 8.7 Creatinine 1.5 H Est GFR (CKD-EPI)AfAm 63.34 Est GFR (CKD-EPI)NonAf 54.65 Random Glucose 96 Calcium 8.2 L Phosphorus 2.5 Magnesium 1.9 Total Bilirubin 0.7 AST 76 H ALT 88 H Alkaline Phosphatase 140 H Creatine Kinase Troponin I C-Reactive Protein Total Protein 6.4 Albumin 2.4 L Urine Color Urine Appearance Urine pH Ur Specific [place] Urine Protein Urine Glucose (UA) Urine Ketones Urine Blood Urine Nitrite Urine Bilirubin Urine Urobilinogen Ur Leukocyte Esterase Urine WBC (Auto) Urine RBC (Auto) U Epithel Cells (Auto) Urine Bacteria (Auto) COVID-19 (AIDE) Imaging - Results Cat Scan: Report Reviewed Ultrasound: Report Reviewed Problem List - Problems (1) Lupus Code(s): M32.9 - SYSTEMIC LUPUS ERYTHEMATOSUS, UNSPECIFIED (2) Rheumatoid arthritis Code(s): M06.9 - RHEUMATOID ARTHRITIS, UNSPECIFIED (3) Chest pain Code(s): R07.9 - CHEST PAIN, UNSPECIFIED (4) Fever Code(s): R50.9 - FEVER, UNSPECIFIED (5) Headache Code(s): R51 - HEADACHE (6) Pneumonia Code(s): J18.9 - PNEUMONIA, UNSPECIFIED ORGANISM (7) CKD (chronic kidney disease) Code(s): N18.9 - CHRONIC KIDNEY DISEASE, UNSPECIFIED Assessment/Plan 49 y.o. male with PMH of RA, SLE on Hydroxychloroquine, COVID + in August 2019, and obesity presents with c/o fever x 2 days, constant H/A, intermittent chest pain x 4 days CAP Lupus RA CKD Elevated LFTs Hx of COVID-19 -- continue Ceftriaxone, add Doxycycline -- follow up blood cultures, send urine ag for pneum/legionella -- monitor LFTs/renal function, f/u hepatitis serology -- monitor wbc/temp trends -- headaches resolving, no clear meningeal signs - continue monitor -- COVID neg on this admission Will follow Thank you
--- NOTE | 2020-01-10 14:22 | CON.PULM ---
Consult Consult Specialty:: PULM/CCM Referred by:: Hospitalist Reason for Consultation:: PNA - History of Present Illness Chief Complaint: SOB History of Present Illness: 49 M, HTN, lupus (on hydroxychloroquine), COVID + in 08/2019 (was not hospitalized: given Zpack), rheumatoid arthritis, and resolved childhood asthma. Sent to the ED from [facility] urgent care to r/o Pulmonary embolism. He reports 2 nights of 8/10 pressure. He also reports headache and photophobia (both seem better now). No travel history or sick contacts. No hemoptysis or night sweats. CTA : No PE / RLL consolidation - History Source History Provided By: Patient Limitations to Obtaining History: No Limitations - Past Medical History Pulmonary: Yes: Asthma, Bronchitis. No: COPD, O2 Dependent, Pneumonia, Previously Intubated, Pulmonary Embolus, Pulmonary Fibrosis, Sleep Apnea - Smoking History Smoking history: Never smoked Have you smoked in the past 12 months: No Home Medications - Allergies Allergies/Adverse Reactions: Allergies Allergy/AdvReac Type Severity Reaction Status Date / Time No Known Drug Allergies Allergy Verified 01/10/20 00:13 ABX AdvReac Severe Hives Uncoded 01/09/20 23:25 Review of Systems - Review of Systems Constitutional: reports: Malaise. denies: Chills, Fever, Night Sweats Eyes: reports: Blurred Vision, Other (Photphobia) HENT: reports: No Symptoms Neck: reports: No Symptoms Cardiovascular: reports: Chest Pain, Shortness of Breath. denies: Edema, Palpitations Respiratory: reports: Cough, SOB, SOB on Exertion. denies: Hemoptysis, Snoring, Wheezing Gastrointestinal: reports: Abdominal Pain. denies: Melena, Rectal Bleeding, Vomiting, Vomiting Blood Genitourinary: reports: No Symptoms Breasts: reports: No Symptoms Reported Musculoskeletal: reports: No Symptoms Integumentary: reports: No Symptoms Neurological: reports: No Symptoms Endocrine: reports: No Symptoms Hematology/Lymphatic: reports: No Symptoms Psychiatric: reports: No Symptoms Physical Exam Vital Sings: Vital Signs Temperature 100.4 F H 01/10/20 12:35 Pulse Rate 96 H 01/10/20 12:35 Respiratory Rate 20 01/10/20 12:35 Blood Pressure 153/87 01/10/20 12:35 O2 Sat by Pulse Oximetry (%) 98 01/10/20 12:35 Constitutional: Yes: Well Nourished, No Distress, Calm Eyes: Yes: WNL, Conjunctiva Clear, EOM Intact HENT: Yes: Atraumatic, Normocephalic Neck: Yes: Supple, Trachea Midline Cardiovascular: Yes: Regular Rate and Rhythm Respiratory: Yes: Regular, Cough, Diminished, Dullness, On Nasal O2, Rhonchi, SOB on Exertion. No: Accessory Muscle Use, Rales, SOB, Stridor, Tachypnea, Wheezes ...Inspection: Yes: WNL ...Clubbing: No Gastrointestinal: Yes: Normal Bowel Sounds, Soft Renal/: Yes: WNL Musculoskeletal: Yes: WNL Extremities: Yes: WNL Edema: Yes Peripheral Pulses WNL: Yes Integumentary: Yes: WNL Neurological: Yes: WNL, Alert, Oriented ...Motor Strength: WNL Psychiatric: Yes: WNL, Alert, Oriented Labs: CBC, BMP 01/10/20 07:42 01/10/20 07:42 Imaging - Results Chest X-ray: Report Reviewed, Image Reviewed Cat Scan: Report Reviewed, Image Reviewed Assessment/Plan IMP: RLL CAP PE ruled out History of COVID19 infection August 2019 Childhood Asthma Lupus Do not suspect Meningitis PLAN: ABX per ID Check sputum Supplemental O2 as needed Monitor off systemic steroids No smoking BD TX PRN only VTE prophylaxis Will follow Thank you. Dr Guallpa
--- NOTE | 2020-01-10 14:48 | CONSULT ---
Consult Consult Specialty:: Nephrology Reason for Consultation:: CKD - History of Present Illness Chief Complaint: headache History of Present Illness: Pt is a 49 year old male with pmhx of htn, sle, ckd, covid, RA, and asthma who presents to ER after being sent from [facility] to r/o . He complains mainly of a headache that he has had for a few days. 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 He was found to have elevated manager biostatistics and I was called to evaluate him. he says the he was diagnoses with renal failure secondary to lupus many years ago. 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 He denies dysuria or hematuria. He does complain of fever. He is on hydroxychloroquine. - History Source History Provided By: Patient, Medical Record - Past Medical History Pulmonary: Yes: Asthma, Bronchitis Renal/: Yes: Renal Inusuff Infectious Disease: Yes: Other (COVID + , August 2019) Rheumatology: Yes: Lupus, Rheumatoid Arthritis - Smoking History Smoking history: Never smoked Have you smoked in the past 12 months: No Home Medications - Allergies Allergies/Adverse Reactions: Allergies Allergy/AdvReac Type Severity Reaction Status Date / Time No Known Drug Allergies Allergy Verified 01/10/20 00:13 ABX AdvReac Severe Hives Uncoded 01/09/20 23:25 Family Medical History Family History: Denies Review of Systems - Review of Systems Constitutional: reports: Malaise Eyes: reports: No Symptoms HENT: reports: No Symptoms Neck: reports: No Symptoms Cardiovascular: reports: No Symptoms Respiratory: reports: No Symptoms Gastrointestinal: reports: No Symptoms Genitourinary: reports: No Symptoms Musculoskeletal: reports: No Symptoms Integumentary: reports: No Symptoms Neurological: reports: No Symptoms Endocrine: reports: No Symptoms Hematology/Lymphatic: reports: No Symptoms Psychiatric: reports: No Symptoms Physical Exam Vital Signs: Vital Signs Temperature 99.4 F 01/10/20 14:00 Pulse Rate 106 H 01/10/20 14:00 Respiratory Rate 20 01/10/20 14:00 Blood Pressure 129/80 01/10/20 14:00 O2 Sat by Pulse Oximetry (%) 99 01/10/20 14:00 Constitutional: Yes: Calm Eyes: Yes: Conjunctiva Clear HENT: Yes: Atraumatic Neck: Yes: Supple Cardiovascular: Yes: S1, S2 Respiratory: Yes: CTA Bilaterally Gastrointestinal: Yes: Normal Bowel Sounds, Soft Renal/: Yes: WNL Edema: No Neurological: Yes: Oriented Psychiatric: Yes: Oriented Labs: CBC, BMP 01/10/20 07:42 01/10/20 07:42 Laboratory Tests 01/09/20 01/09/20 01/09/20 16:06 16:06 18:40 WBC 12.9 H Creatinine 1.7 H Ur Specific [place] 1.047 H Urine Protein 100 Urine Blood 1+ H IBRAHIMA Screen 01/10/20 01/10/20 01/10/20 01:45 07:42 07:42 WBC 11.7 H Creatinine 1.5 H Ur Specific [place] Urine Protein Urine Blood IBRAHIMA Screen Pending Imaging - Results Ultrasound: Report Reviewed Problem List - Problems (1) CKD (chronic kidney disease) Code(s): N18.9 - CHRONIC KIDNEY DISEASE, UNSPECIFIED (2) Chest pain Code(s): R07.9 - CHEST PAIN, UNSPECIFIED (3) Fever Code(s): R50.9 - FEVER, UNSPECIFIED (4) Headache Code(s): R51 - HEADACHE (5) Lupus Code(s): M32.9 - SYSTEMIC LUPUS ERYTHEMATOSUS, UNSPECIFIED (6) Rheumatoid arthritis Code(s): M06.9 - RHEUMATOID ARTHRITIS, UNSPECIFIED Assessment/Plan Current Medications Generic Name Dose Route Start Last Admin Trade Name Freq PRN Reason Stop Dose Admin Acetaminophen 1,000 mg 01/10/20 08:48 Ofirmev Injection - IVPB 01/11/20 08:48 Q8H PRN FEVER Heparin Sodium (Porcine) 5,000 unit 01/09/20 23:30 01/10/20 13:47 Heparin - SQ 5,000 unit TID KENYA Administration Sodium Chloride 1,000 mls @ 75 mls/hr 01/09/20 23:45 01/10/20 01:03 Normal Saline - IV 75 mls/hr ASDIR KENYA Administration Ceftriaxone Sodium 2 gm/ 100 mls @ 100 mls/hr 01/11/20 10:00 Dextrose IVPB DAILY KENYA Protocol Vancomycin HCl 1,000 mg in 250 mls @ 200 mls/hr 01/10/20 17:00 Vancomycin (Pre-Docked) IVPB Q24H KENYA Protocol Impression 1. CKD 2. SLE 3. headache 4. hx covid 5. asthma 6. htn 7. fever Plan - cont fluids - manager biostatistics improved - ua with blood and protein - obtain outpt records - pulm input appreciated - unclear baseline manager biostatistics - fever workup in progress
[2020-01-10] MEDS: DOXYCYCLINE HYCLATE 100 MG CAPSULE PO SCH ×2 (15:41→17:35)
--- NOTE | 2020-01-10 16:18 | CONSULT ---
Consult - text type - Consultation Consultation Note: NEUROLOGY CONSULTATION is greatly appreciated: Events reviewed and discussed with Drs. Haddad and Miguelito. Patient examined with his partner of 12 years at the bedside. 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 Maintained on Hydroxychloroquine and lisinopril (?) and followed by Dr. Todd Rodriges of [facility]. Covid + in August. Approximately 4 SLADE's year. Dull holocranial throbbing. developed a dull headache which progressed over two days. Photophobia on Saturday-Sat. Fevers on Saturday. Cough on Saturday morning Started on Ceftriaxone and zosyn. Headaches "90% better" at this time. CT of head (reviewed): Normal CT of chest RLL Pneumonia. + Pericardial effusion. WBC=12.9 K Covid -. ESR= 90 mm/hr. CRP= 34.3 mg% !!! Cr= 1.7 mg%. Elevated alk phos and transaminases. + proteinuria and Urine WBC=82 GWENDOLYN: Neck supple NEURO: Awake and alert. MS/Speech normal CN II-XII: normal Motor: No drift or tremor. Normal strength, tone, bulk and reflexes. Toes downgoing Coord: No FTN dystaxia Sensory: Normal Gait: Deferred IMP: Normal neurological exam Doubt meningitis. Suspect headaches due to Toxic-metabolic factors such as fever/infection or activation of Lupus Underlying headache disorder, possibly migraine. SUGGEST: Continue antibiotics and hydration. Await IBRAHIMA. Rheumatology consultation- exacerbation of SLE Echocardiogram as per cardiology to evaluate pericardial effusion. GI consult for abnormal LFT's No specific neuro Rx at this time. Thank you very much, Javad Alcocer MD
[2020-01-10] MEDS ORDERED: HYDROXYCHLOROQUINE SO4 200 MG TABLET (FP) PO ONE (16:21)
[2020-01-10] MEDS ORDERED: VANCOMYCIN 1 GRAM (PRE-DOCKED) 1,000 MG/250 ML BAG IVPB SCH (17:00)
--- NOTE | 2020-01-10 17:44 | PN ---
Teaching Attending Note Name of Resident: Tori Negrete ATTENDING PHYSICIAN STATEMENT I saw and evaluated the patient. I reviewed the resident's note and discussed the case with the resident. I agree with the resident's findings and plan as documented. SUBJECTIVE: Patient is c/o having headache but improving 90% better OBJECTIVE: Vital Signs Temperature 99.4 F 01/10/20 14:00 Pulse Rate 106 H 01/10/20 14:00 Respiratory Rate 20 01/10/20 14:00 Blood Pressure 129/80 01/10/20 14:00 O2 Sat by Pulse Oximetry (%) 99 01/10/20 14:00 PE: per resident's note no meningeal sign CBCD WBC 11.7 K/mm3 (4.0-10.0) H 01/10/20 07:42 RBC 4.53 M/mm3 (4.00-5.60) 01/10/20 07:42 Hgb 13.1 GM/dL (11.7-16.9) 01/10/20 07:42 Hct 39.0 % (35.4-49) 01/10/20 07:42 MCV 86.1 fl (80-96) 01/10/20 07:42 MCHC 33.7 g/dl (32.0-35.9) 01/10/20 07:42 RDW 13.3 % (11.9-15.9) 01/10/20 07:42 Plt Count 115 K/MM3 (134-434) L 01/10/20 07:42 MPV 9.1 fl (7.5-11.1) 01/10/20 07:42 CMP Sodium 139 mmol/L (136-145) 01/10/20 07:42 Potassium 4.1 mmol/L (3.5-5.1) 01/10/20 07:42 Chloride 106 mmol/L (98-107) 01/10/20 07:42 Carbon Dioxide 23 mmol/L (21-32) 01/10/20 07:42 Anion Gap 11 MMOL/L (8-16) 01/10/20 07:42 BUN 8.7 mg/dL (7-18) 01/10/20 07:42 Creatinine 1.5 mg/dL (0.55-1.3) H 01/10/20 07:42 Random Glucose 96 mg/dL (74-106) 01/10/20 07:42 Calcium 8.2 mg/dL (8.5-10.1) L 01/10/20 07:42 Total Bilirubin 0.7 mg/dL (0.2-1) 01/10/20 07:42 AST 76 U/L (15-37) H 01/10/20 07:42 ALT 88 U/L (13-61) H 01/10/20 07:42 Alkaline Phosphatase 140 U/L (45-117) H 01/10/20 07:42 Total Protein 6.4 g/dl (6.4-8.2) 01/10/20 07:42 Albumin 2.4 g/dl (3.4-5.0) L 01/10/20 07:42 CARDIAC ENZYMES Creatine Kinase 137 U/L (26-308) 01/09/20 16:06 Troponin I < 0.02 ng/ml (0.00-0.05) 01/10/20 01:45 Current Medications Generic Name Dose Route Start Last Admin Trade Name Zohra PRN Reason Stop Dose Admin Acetaminophen 1,000 mg 01/10/20 08:48 01/10/20 17:33 Ofirmev Injection - IVPB 01/11/20 08:48 1,000 mg Q8H PRN Administration FEVER Doxycycline Hyclate 100 mg 01/10/20 15:28 01/10/20 17:35 Vibramycin - PO 100 mg BID@1000,1800 KENYA Administration Heparin Sodium (Porcine) 5,000 unit 01/09/20 23:30 01/10/20 13:47 Heparin - SQ 5,000 unit TID KENYA Administration Hydroxychloroquine Sulfate 400 mg 01/11/20 10:00 Plaquenil - PO DAILY PENDING SALE TO [facility] Sodium Chloride 1,000 mls @ 75 mls/hr 01/09/20 23:45 01/10/20 01:03 Normal Saline - IV 75 mls/hr ASDIR KENYA Administration Ceftriaxone Sodium 2 gm/ 100 mls @ 100 mls/hr 01/11/20 10:00 Dextrose IVPB DAILY PENDING SALE TO [facility] Protocol Home Medications Medication Instructions Recorded Cholecalciferol (Vitamin D3) 50,000 unit PO WEEKLY 01/10/20 [Vitamin D3 -] Hydroxychloroquine Sulfate 400 mg PO DAILY 01/10/20 [Plaquenil] Losartan Potassium 100 mg PO DAILY 01/10/20 CTA of the chest: NO pE, minimal pleural effusion Ct of the head: neg for an acute pathology ASSESSMENT AND PLAN: This patient is a 49yom with PMhx of HTN, SLE (on hydroxychloroquine), COVID + in 08/2019 (treated at home), OA (L hip) who presents to ED to r/o Pulmonary embolism. Pt was admitted for acute sepsis. #Sepsis due to consolidation /PNA on CTA of the chest , less likely meningitis , neuro on the case, trend the markers on IV Rocephin and doxycline s/p vanco Id and neuro/cardio ont eh case #Acute Transaminitis: monitor and trend , US result noted #DICKSON Monitor 1.7 #SLE: continue hydroxychloroquine #Hx of OA: prn tylenol DVT ppx :Heparin sq TID follow markers follow echo
--- NOTE | 2020-01-10 18:15 | EKG ---
Test Reason : Blood Pressure : / mmHG Vent. Rate : 091 BPM Atrial Rate : 091 BPM P-R Int : 164 ms QRS Dur : 096 ms QT Int : 320 ms P-R-T Axes : 064 061 063 degrees QTc Int : 393 ms NORMAL SINUS RHYTHM NORMAL ECG NO PREVIOUS ECGS AVAILABLE Confirmed by MD ROBERTO, TYLER ([id number]) on 01/10/2020 6:14:45 PM Referred By: Confirmed By:TYLER MEJIA MD
[2020-01-11] MEDS: HEPARIN NA (PORCINE) 5,000 UNITS/ML 1ML VIAL SQ SCH ×3 (06:13→21:07)
[2020-01-11] MEDS ORDERED: guaiFENesin/D-M SUGAR-FREE/ACLHOL-FREE 118 ML BOTTLE PO PRN ×2 (07:41→17:26)
[2020-01-11] MEDS ORDERED: PT OWN MED DRAWER 7, Y5N ONE ×3 (08:19→21:04)
[2020-01-11] MEDS ORDERED: DEXTROSE 5%-WATER 100 ML IVPB ONE (09:31)
[2020-01-11] MEDS: CEFTRIAXONE 2 GM in DEXTROSE 5%-WATER 100 ML IVPB SCH (09:43)
[2020-01-11] MEDS: DOXYCYCLINE HYCLATE 100 MG CAPSULE PO SCH ×2 (09:44→17:23)
[2020-01-11] MEDS: HYDROXYCHLOROQUINE SO4 200 MG TABLET (FP) PO SCH (09:44)
[2020-01-11] MEDS: SODIUM CHLORIDE 1,000 ML IV SCH (11:28)
[2020-01-11] MEDS: DEXAMETHASONE SOD PHOSPHATE 4 MG/1 ML VIAL IVPUSH SCH (11:29)
--- NOTE | 2020-01-11 12:23 | ECHO ---
Name: ANITA ANALI Exam:Adult Echocardiogram Study Date: 01/11/2020 10:29 AM Age: 49 yrs Reason For Study: R/O Vegetation Height: 66 in Weight: 203 lb BSA: 2.0 m2 MMode/2D Measurements & Calculations IVSd: 0.92 cm Ao root diam: 3.3 cm LVIDd: 5.1 cm LA dimension: 3.6 cm LVIDs: 3.4 cm ACS: 1.9 cm LVPWd: 0.85 cm EDV(Teich): 124.6 ml LVOT diam: 2.2 cm ESV(Teich): 47.7 ml LAV (MOD-bp): 52.0 ml TAPSE: 1.5 cm RV S Sin: 12.8 cm/sec Doppler Measurements & Calculations MV E max sin: 92.3 cm/sec Ao V2 max: 137.1 cm/sec MV A max sin: 69.6 cm/sec Ao max P.5 mmHg MV E/A: 1.3 Ao V2 mean: 93.9 cm/sec MV dec time: 0.13 sec Ao mean P.0 mmHg Ao V2 VTI: 20.2 cm GABRIEL(I,D): 4.2 cm2 GABRIEL(V,D): 3.8 cm2 LV V1 max P.4 mmHg SV(LVOT): 84.5 ml LV V1 mean P.7 mmHg LV V1 max: 136.0 cm/sec LV V1 mean: 90.0 cm/sec LV V1 VTI: 22.2 cm PA V2 max: 90.9 cm/sec Med Peak E' Sin: 7.6 cm/sec PA max P.3 mmHg Med E/e': 12.2 PA acc slope: 555.3 cm/sec2 Lat Peak E' Sin: 13.5 cm/sec PA acc time: 0.09 sec Lat E/e': 6.8 PA pr(Accel): 37.8 mmHg Tech Comments TDS due to poor acoustic windows. Procedure A complete two-dimensional transthoracic echocardiogram was performed (2D, M-mode, Doppler and color flow Doppler). Left Ventricle The left ventricle is normal in size. Left ventricular systolic function is normal. Ejection Fraction = 60- 65%. No regional wall motion abnormalities noted. Right Ventricle The right ventricle is normal size. The right ventricular systolic function is normal. RV systolic TD I is 13 cm/s. Atria The left atrial size is normal. LA volume index is 26 ml/m2. Right atrial size is normal. Mitral Valve The mitral valve is normal in structure and function. There is no vegetation seen on the mitral valve . There is mild mitral regurgitation. Tricuspid Valve The tricuspid valve is normal in structure and function. There is no tricuspid valve vegetation. No t ricuspid regurgitation. Aortic Valve There is mild aortic sclerosis.;. There is no aortic valvular vegetation. No aortic regurgitation is present. Pulmonic Valve The pulmonic valve is not well visualized. There is no vegetation on the pulmonic valve. Great Vessels The aortic root is normal size. Pericardium/Pleura There is no pericardial effusion. Interpretation Summary The left ventricle is normal in size. Left ventricular systolic function is normal. No regional wall motion abnormalities noted. Ejection Fraction = 60-65%. The right ventricular systolic function is normal. The left atrial size is normal. Right atrial size is normal. There is mild mitral regurgitation. There is mild aortic sclerosis. No obvious vegetations are seen. Clinical correlation is recommended There is no pericardial effusion. Audie Vera MD 01/11/2020 12:22 PM
[2020-01-11] MEDS: ACETAMINOPHEN 1000 MG/100 ML VIAL (NON FORMULARY) IVPB ONE ×2 (12:28→17:29)
[2020-01-11 12:33] LABS: BASO % 0.5 % (0-2.0); EOS % 0.3 % (0-4.5); HEMATOCRIT 39.8 % (35.4-49); HEMOGLOBIN 13.3 GM/dL (11.7-16.9); LYMPH % 4.5 % (8-40); MCH 29.8 pg (25.7-33.7); MCHC 33.6 g/dl (32.0-35.9); MEAN CELL VOLUME 88.6 fl (80-96); MEAN PLT VOLUME 9.7 fl (7.5-11.1); MONO % 6.6 % (3.8-10.2); NEUT % 88.1 % (42.8-82.8); PLATELET COUNT 116 K/MM3 (134-434); RBC 4.49 M/mm3 (4.00-5.60); RDW 13.6 % (11.9-15.9); WHITE BLOOD COUNT 7.6 K/mm3 (4.0-10.0)
--- NOTE | 2020-01-11 13:28 | PN ---
Progress Note, Physician History of Present Illness: feels weak still spiking fevers - Current Medication List Current Medications: Active Medications Dexamethasone Sodium Phosphate (Decadron Injection -) 6 mg IVPUSH DAILY [facility] Stop: 01/17/20 09:59 Last Admin: 01/11/20 11:29 Dose: 6 mg Documented by: Doxycycline Hyclate (Vibramycin -) 100 mg PO BID@1000,1800 [facility] Last Admin: 01/11/20 09:44 Dose: 100 mg Documented by: Guaifenesin (Diabetic Tussin Dm -) 5 ml PO Q6H PRN PRN Reason: COUGH Last Admin: 01/11/20 08:13 Dose: 5 ml Documented by: Heparin Sodium (Porcine) (Heparin -) 5,000 unit SQ TID [facility] Last Admin: 01/11/20 06:13 Dose: 5,000 unit Documented by: Hydroxychloroquine Sulfate (Plaquenil -) 400 mg PO DAILY [facility] Last Admin: 01/11/20 09:44 Dose: 400 mg Documented by: Sodium Chloride (Normal Saline -) 1,000 mls @ 75 mls/hr IV ASDIR [facility] Last Admin: 01/11/20 11:28 Dose: 75 mls/hr Documented by: Ceftriaxone Sodium 2 gm/ (Dextrose) 100 mls @ 100 mls/hr IVPB DAILY [facility]; Protocol Last Admin: 01/11/20 09:43 Dose: 100 mls/hr Documented by: - Objective Vital Signs: Vital Signs Temperature 100 F H 01/11/20 10:00 Pulse Rate 100 H 01/11/20 10:00 Respiratory Rate 18 01/11/20 10:00 Blood Pressure 120/72 01/11/20 10:00 O2 Sat by Pulse Oximetry (%) 99 01/11/20 10:00 Constitutional: Yes: No Distress, Calm Cardiovascular: Yes: S1, S2 Respiratory: Yes: Regular, CTA Bilaterally Gastrointestinal: Yes: Normal Bowel Sounds, Soft Musculoskeletal: Yes: WNL Extremities: Yes: WNL Neurological: Yes: Alert, Oriented Psychiatric: Yes: Alert, Oriented Labs: CBC, BMP 01/11/20 11:15 INR, PTT INR 1.34 (0.83-1.09) H 01/09/20 16:06 Assessment/Plan Problem List - Problems (1) Lupus Code(s): M32.9 - SYSTEMIC LUPUS ERYTHEMATOSUS, UNSPECIFIED (2) Rheumatoid arthritis Code(s): M06.9 - RHEUMATOID ARTHRITIS, UNSPECIFIED (3) Chest pain Code(s): R07.9 - CHEST PAIN, UNSPECIFIED (4) Fever Code(s): R50.9 - FEVER, UNSPECIFIED (5) Headache Code(s): R51 - HEADACHE (6) Pneumonia Code(s): J18.9 - PNEUMONIA, UNSPECIFIED ORGANISM (7) CKD (chronic kidney disease) Code(s): N18.9 - CHRONIC KIDNEY DISEASE, UNSPECIFIED Assessment/Plan 49 y.o. 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
[2020-01-11 13:41] LABS: ALBUMIN 2.2 g/dl (3.4-5.0); BILIRUBIN,TOTAL 0.7 mg/dL (0.2-1); CALCIUM 8.3 mg/dL (8.5-10.1); CREATININE 1.4 mg/dL (0.55-1.3); MAGNESIUM 2.4 mg/dL (1.8-2.4); POTASSIUM 4.8 mmol/L (3.5-5.1); TOT PROT 6.6 g/dl (6.4-8.2)
--- NOTE | 2020-01-11 14:00 | PN ---
Progress Note (short form) - Note Progress Note: Breathing feels a little better. Cough noted to be slightly more productive. No hemoptysis. Intake & Output 01/08/20 01/09/20 01/10/20 01/11/20 23:59 23:59 23:59 23:59 Intake Total 10 3264 Output Total 1999 800 Balance 10 1264 -800 Weight 210 lb 12.8 oz 210 lb 12.8 oz 203 lb 6.4 oz Last Vital Signs Temp Pulse Resp BP Pulse Ox 100 F H 100 H 18 120/72 99 01/11/20 10:00 01/11/20 10:00 01/11/20 10:00 01/11/20 10:00 01/11/20 10:00 Active Medications Dexamethasone Sodium Phosphate (Decadron Injection -) 6 mg IVPUSH DAILY [facility] Stop: 01/17/20 09:59 Last Admin: 01/11/20 11:29 Dose: 6 mg Documented by: Doxycycline Hyclate (Vibramycin -) 100 mg PO BID@1000,1800 [facility] Last Admin: 01/11/20 09:44 Dose: 100 mg Documented by: Guaifenesin (Diabetic Tussin Dm -) 5 ml PO Q6H PRN PRN Reason: COUGH Last Admin: 01/11/20 08:13 Dose: 5 ml Documented by: Heparin Sodium (Porcine) (Heparin -) 5,000 unit SQ TID [facility] Last Admin: 01/11/20 06:13 Dose: 5,000 unit Documented by: Hydroxychloroquine Sulfate (Plaquenil -) 400 mg PO DAILY [facility] Last Admin: 01/11/20 09:44 Dose: 400 mg Documented by: Sodium Chloride (Normal Saline -) 1,000 mls @ 75 mls/hr IV ASDIR [facility] Last Admin: 01/11/20 11:28 Dose: 75 mls/hr Documented by: Ceftriaxone Sodium 2 gm/ (Dextrose) 100 mls @ 100 mls/hr IVPB DAILY [facility]; Protocol Last Admin: 01/11/20 09:43 Dose: 100 mls/hr Documented by: Constitutional: Yes: Well Nourished, No Distress, Calm Eyes: Yes: WNL, Conjunctiva Clear, EOM Intact HENT: Yes: Atraumatic, Normocephalic Neck: Yes: Supple, Trachea Midline Cardiovascular: Yes: Regular Rate and Rhythm Respiratory: Yes: Regular, Cough, Diminished, Dullness, On Nasal O2, Rhonchi, SOB on Exertion. No: Accessory Muscle Use, Rales, SOB, Stridor, Tachypnea, Wheezes ...Inspection: Yes: WNL ...Clubbing: No Gastrointestinal: Yes: Normal Bowel Sounds, Soft Renal/: Yes: WNL Musculoskeletal: Yes: WNL Extremities: Yes: WNL Edema: Yes Peripheral Pulses WNL: Yes Integumentary: Yes: WNL Neurological: Yes: WNL, Alert, Oriented ...Motor Strength: WNL Psychiatric: Yes: WNL, Alert, Oriented Labs: Laboratory Results - last 24 hr 01/11/20 01/11/20 11:15 11:15 WBC 7.6 RBC 4.49 Hgb 13.3 Hct 39.8 MCV 88.6 MCH 29.8 MCHC 33.6 RDW 13.6 Plt Count 116 L MPV 9.7 Absolute Neuts (auto) 6.7 Neutrophils % 88.1 H Lymphocytes % 4.5 L D Monocytes % 6.6 Eosinophils % 0.3 Basophils % 0.5 Nucleated RBC % 0 Sodium 137 Potassium 4.8 Chloride 104 Carbon Dioxide 27 Anion Gap 7 L BUN 11.0 Creatinine 1.4 H Est GFR (CKD-EPI)AfAm 68.85 Est GFR (CKD-EPI)NonAf 59.41 Random Glucose 88 Calcium 8.3 L Phosphorus 2.0 L Magnesium 2.4 Total Bilirubin 0.7 AST 49 H ALT 72 H Alkaline Phosphatase 161 H Total Protein 6.6 Albumin 2.2 L Imaging - Results Chest X-ray: Report Reviewed, Image Reviewed Cat Scan: Report Reviewed, Image Reviewed Assessment/Plan IMP: RLL CAP PE ruled out History of COVID19 infection August 2019 Childhood Asthma Lupus Do not suspect Meningitis PLAN: ABX per ID Check sputum Supplemental O2 as needed Dexamethasone 6mg OD No smoking BD TX PRN only VTE prophylaxis Dr Guallpa
[2020-01-11] MEDS ORDERED: NAPH,MB-DB/K PH,MBDB POWDER PACKET PO ONE (14:37)
--- NOTE | 2020-01-11 14:41 | PN ---
Progress Note, Physician History of Present Illness: Pt seen and examined at bedside. He is awake and alert. He still gets a cough. - Current Medication List Current Medications: Active Medications Dexamethasone Sodium Phosphate (Decadron Injection -) 6 mg IVPUSH DAILY [facility] Stop: 01/17/20 09:59 Last Admin: 01/11/20 11:29 Dose: 6 mg Documented by: Doxycycline Hyclate (Vibramycin -) 100 mg PO BID@1000,1800 [facility] Last Admin: 01/11/20 09:44 Dose: 100 mg Documented by: Guaifenesin (Diabetic Tussin Dm -) 5 ml PO Q6H PRN PRN Reason: COUGH Last Admin: 01/11/20 08:13 Dose: 5 ml Documented by: Heparin Sodium (Porcine) (Heparin -) 5,000 unit SQ TID [facility] Last Admin: 01/11/20 06:13 Dose: 5,000 unit Documented by: Hydroxychloroquine Sulfate (Plaquenil -) 400 mg PO DAILY [facility] Last Admin: 01/11/20 09:44 Dose: 400 mg Documented by: Sodium Chloride (Normal Saline -) 1,000 mls @ 75 mls/hr IV ASDIR [facility] Last Admin: 01/11/20 11:28 Dose: 75 mls/hr Documented by: Ceftriaxone Sodium 2 gm/ (Dextrose) 100 mls @ 100 mls/hr IVPB DAILY [facility]; Protocol Last Admin: 01/11/20 09:43 Dose: 100 mls/hr Documented by: Potassium Phos/Sodium Phos (Phos-Nak Packet -) 2 packet PO ONCE ONE Stop: 01/11/20 14:38 - Objective Vital Signs: Vital Signs Temperature 100.9 F H 01/11/20 14:00 Pulse Rate 113 H 01/11/20 14:00 Respiratory Rate 20 01/11/20 14:00 Blood Pressure 123/75 01/11/20 14:00 O2 Sat by Pulse Oximetry (%) 98 01/11/20 14:00 Constitutional: Yes: Calm Eyes: Yes: Conjunctiva Clear HENT: Yes: Atraumatic Neck: Yes: Supple Cardiovascular: Yes: S1, S2 Respiratory: Yes: CTA Bilaterally Gastrointestinal: Yes: Normal Bowel Sounds, Soft Genitourinary: Yes: WNL Musculoskeletal: Yes: WNL Edema: No Neurological: Yes: Oriented Psychiatric: Yes: Oriented Labs: CBC, BMP 01/11/20 11:15 01/11/20 11:15 INR, PTT INR 1.34 (0.83-1.09) H 01/09/20 16:06 Problem List - Problems (1) CKD (chronic kidney disease) Code(s): N18.9 - CHRONIC KIDNEY DISEASE, UNSPECIFIED (2) Chest pain Code(s): R07.9 - CHEST PAIN, UNSPECIFIED (3) Fever Code(s): R50.9 - FEVER, UNSPECIFIED (4) Headache Code(s): R51 - HEADACHE (5) Lupus Code(s): M32.9 - SYSTEMIC LUPUS ERYTHEMATOSUS, UNSPECIFIED (6) Rheumatoid arthritis Code(s): M06.9 - RHEUMATOID ARTHRITIS, UNSPECIFIED Assessment/Plan Current Medications Generic Name Dose Route Start Last Admin Trade Name Freq PRN Reason Stop Dose Admin Dexamethasone Sodium Phosphate 6 mg 01/11/20 10:00 01/11/20 11:29 Decadron Injection - IVPUSH 01/17/20 09:59 6 mg DAILY KENYA Administration Doxycycline Hyclate 100 mg 01/10/20 15:28 01/11/20 09:44 Vibramycin - PO 100 mg BID@1000,1800 EKNYA Administration Guaifenesin 5 ml 01/11/20 07:41 01/11/20 08:13 Diabetic Tussin Dm - PO 5 ml Q6H PRN Administration COUGH Heparin Sodium (Porcine) 5,000 unit 01/09/20 23:30 01/11/20 06:13 Heparin - SQ 5,000 unit TID KENYA Administration Hydroxychloroquine Sulfate 400 mg 01/11/20 10:00 01/11/20 09:44 Plaquenil - PO 400 mg DAILY KENYA Administration Sodium Chloride 1,000 mls @ 75 mls/hr 01/09/20 23:45 01/11/20 11:28 Normal Saline - IV 75 mls/hr ASDIR KENYA Administration Ceftriaxone Sodium 2 gm/ 100 mls @ 100 mls/hr 01/11/20 10:00 01/11/20 09:43 Dextrose IVPB 100 mls/hr DAILY KENYA Administration Protocol Potassium Phos/Sodium Phos 2 packet 01/11/20 14:37 Phos-Nak Packet - PO 01/11/20 14:38 ONCE ONE Impression 1. CKD 2. SLE 3. headache 4. hx covid 5. asthma 6. htn 7. fever Plan - renal function improving - repeat ua - obtain outpt records to evaluate baseline rn flight - pulm input appreciated - unclear baseline rn flight - fever workup in progress
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
--- NOTE | 2020-01-11 17:17 | PN ---
Teaching Attending Note Name of Resident: Heidi Laguna ATTENDING PHYSICIAN STATEMENT I saw and evaluated the patient. I reviewed the resident's note and discussed the case with the resident. I agree with the resident's findings and plan as documented. SUBJECTIVE: patient is feeling better, no fever or chills, on NC. breathing better , still coughing OBJECTIVE: Vital Signs Temperature 100.9 F H 01/11/20 14:00 Pulse Rate 113 H 01/11/20 14:00 Respiratory Rate 20 01/11/20 14:00 Blood Pressure 123/75 01/11/20 14:00 O2 Sat by Pulse Oximetry (%) 98 01/11/20 14:00 PE;per resident's note CBCD WBC 7.6 K/mm3 (4.0-10.0) 01/11/20 11:15 RBC 4.49 M/mm3 (4.00-5.60) 01/11/20 11:15 Hgb 13.3 GM/dL (11.7-16.9) 01/11/20 11:15 Hct 39.8 % (35.4-49) 01/11/20 11:15 MCV 88.6 fl (80-96) 01/11/20 11:15 MCHC 33.6 g/dl (32.0-35.9) 01/11/20 11:15 RDW 13.6 % (11.9-15.9) 01/11/20 11:15 Plt Count 116 K/MM3 (134-434) L 01/11/20 11:15 MPV 9.7 fl (7.5-11.1) 01/11/20 11:15 CMP Sodium 137 mmol/L (136-145) 01/11/20 11:15 Potassium 4.8 mmol/L (3.5-5.1) 01/11/20 11:15 Chloride 104 mmol/L (98-107) 01/11/20 11:15 Carbon Dioxide 27 mmol/L (21-32) 01/11/20 11:15 Anion Gap 7 MMOL/L (8-16) L 01/11/20 11:15 BUN 11.0 mg/dL (7-18) 01/11/20 11:15 Creatinine 1.4 mg/dL (0.55-1.3) H 01/11/20 11:15 Random Glucose 88 mg/dL (74-106) 01/11/20 11:15 Calcium 8.3 mg/dL (8.5-10.1) L 01/11/20 11:15 Total Bilirubin 0.7 mg/dL (0.2-1) 01/11/20 11:15 AST 49 U/L (15-37) H 01/11/20 11:15 ALT 72 U/L (13-61) H 01/11/20 11:15 Alkaline Phosphatase 161 U/L (45-117) H 01/11/20 11:15 Total Protein 6.6 g/dl (6.4-8.2) 01/11/20 11:15 Albumin 2.2 g/dl (3.4-5.0) L 01/11/20 11:15 CARDIAC ENZYMES Creatine Kinase 137 U/L (26-308) 01/09/20 16:06 Troponin I < 0.02 ng/ml (0.00-0.05) 01/10/20 01:45 Current Medications Generic Name Dose Route Start Last Admin Trade Name Freq PRN Reason Stop Dose Admin Dexamethasone Sodium Phosphate 6 mg 01/11/20 10:00 01/11/20 11:29 Decadron Injection - IVPUSH 01/17/20 09:59 6 mg DAILY KENYA Administration Doxycycline Hyclate 100 mg 01/10/20 15:28 01/11/20 09:44 Vibramycin - PO 100 mg BID@1000,1800 KENYA Administration Guaifenesin 5 ml 01/11/20 07:41 01/11/20 08:13 Diabetic Tussin Dm - PO 5 ml Q6H PRN Administration COUGH Heparin Sodium (Porcine) 5,000 unit 01/09/20 23:30 01/11/20 15:44 Heparin - SQ 5,000 unit TID KENYA Administration Hydroxychloroquine Sulfate 400 mg 01/11/20 10:00 01/11/20 09:44 Plaquenil - PO 400 mg DAILY KENYA Administration Sodium Chloride 1,000 mls @ 75 mls/hr 01/09/20 23:45 01/11/20 11:28 Normal Saline - IV 75 mls/hr ASDIR KENYA Administration Ceftriaxone Sodium 2 gm/ 100 mls @ 100 mls/hr 01/11/20 10:00 01/11/20 09:43 Dextrose IVPB 100 mls/hr DAILY KENYA Administration Protocol Home Medications Medication Instructions Recorded Cholecalciferol (Vitamin D3) 50,000 unit PO WEEKLY 01/10/20 [Vitamin D3 -] Hydroxychloroquine Sulfate 400 mg PO DAILY 01/10/20 [Plaquenil] Losartan Potassium 100 mg PO DAILY 01/10/20 CTA of the chest: NO pE, minimal pleural effusion Ct of the head: neg for an acute pathology Echo: NL with EJF 60-65% ASSESSMENT AND PLAN: This patient is a 49yom with PMhx of HTN, SLE (on hydroxychloroquine), COVID + in 08/2019 (treated at home), OA (L hip) who presents to ED to r/o Pulmonary embolism. Pt was admitted for acute sepsis. #Sepsis due to consolidation ; RLL PNA on CTA of the chest , less likely meningitis , neuro on the case, trend the markers on IV Rocephin and doxycline s/p vanco Id and neuro/cardio on the case #Acute Transaminitis: trending down, continue to monitor , US result noted of the liver #DICKSON Monitor 1.7__>1.4 now #SLE: continue hydroxychloroquine #Hx of OA: prn tylenol IV since LFts are elevated DVT ppx :Heparin sq TID continue to follow markers Coviid: negative now will add robitussin Ac for his cough hs
[2020-01-11 17:27] VITALS: BMI 32.8
--- NOTE | 2020-01-11 19:28 | CONSULT ---
Consult Consult Specialty:: Rheumatology - History of Present Illness History of Present Illness: 49 year old male with PMH of HTN, lupus (on hydroxychloroquine), COVID + in 08/2019 (was not hospitalized) and childhood asthma, referred from [facility] urgent care to r/o Pulmonary embolism. On admission he was diagnosed with pneumonia. HPI Six days ago the patient developed mild chest pain (probable pleuritic), malaise and mild headache. The symptoms progressed and 3 days later he developed fever and the next day he developed productive cough. Since admission he has had fever daily and today 100.9. CT chest: RLL consolidation. The patient was started on Ceftriaxone and Dexamethasone 2 mg IV Q 24 hrs, Lupus. 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 The patient was diagnosed with Lupus in 1997 . 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 The patient was treated with steroids and Mycophenolate which was eventually discontinued and treated only with hydroxychloroquine. The patient has been well controlled. He reports occasional ankle pain but otherwise he is asymptomatic. Laboratory revealed a WBC on admission of 122.9 and today 7.6, Creatinine 1.7 and today 1.4. Urinalysis with blood 1+ and no protein. AST 49 and ALT 72. ESR: 90. IBRAHIMA 1:160 with homogeneous pattern. - Past Medical History Pulmonary: Yes: Asthma, Bronchitis Renal/: Yes: Renal Inusuff Infectious Disease: Yes: Other (COVID + , August 2019) Rheumatology: Yes: Lupus, Rheumatoid Arthritis - Smoking History Smoking history: Never smoked Have you smoked in the past 12 months: No - Social History Usual Living Arrangement: With Significant Other History of Recent Travel: No Home Medications - Allergies Allergies/Adverse Reactions: Allergies Allergy/AdvReac Type Severity Reaction Status Date / Time No Known Drug Allergies Allergy Verified 01/10/20 00:13 ABX AdvReac Severe Hives Uncoded 01/09/20 23:25 - Home Medications Home Medications: Ambulatory Orders Cholecalciferol (Vitamin D3) [Vitamin D3 -] 50,000 unit PO WEEKLY 01/10/20 Hydroxychloroquine Sulfate [Plaquenil] 400 mg PO DAILY 01/10/20 Losartan Potassium 100 mg PO DAILY 01/10/20 Family Medical History Family History: Denies Review of Systems - Review of Systems Constitutional: reports: Malaise Eyes: reports: No Symptoms HENT: reports: No Symptoms Neck: reports: No Symptoms Cardiovascular: reports: No Symptoms Respiratory: reports: Cough Gastrointestinal: reports: No Symptoms Musculoskeletal: reports: No Symptoms Physical Exam Vital Signs: Vital Signs Temperature 102.7 F H 01/11/20 17:00 Pulse Rate 108 H 01/11/20 17:00 Respiratory Rate 18 01/11/20 17:00 Blood Pressure 123/75 01/11/20 14:00 O2 Sat by Pulse Oximetry (%) 98 01/11/20 14:00 Constitutional: Yes: Mild Distress Eyes: Yes: WNL HENT: Yes: WNL Neck: Yes: WNL Cardiovascular: Yes: WNL Respiratory: Yes: WNL Gastrointestinal: Yes: WNL Musculoskeletal: Yes: Other (No active joints.) Labs: CBC, BMP 01/11/20 11:15 01/11/20 11:15 Laboratory Tests 01/09/20 01/09/20 01/10/20 18:15 18:40 01:45 ESR 90 H Creatinine Est GFR (CKD-EPI)NonAf Random Glucose Calcium Phosphorus Magnesium Total Bilirubin AST ALT Alkaline Phosphatase Urine pH 6.0 Ur Specific [place] 1.047 H Urine Protein 100 Urine Glucose (UA) Negative Urine Ketones Negative Urine Blood 1+ H Urine Nitrite Negative Urine Bilirubin Negative Urine Urobilinogen 1.0 Ur Leukocyte Esterase Negative Urine WBC (Auto) 82.8 Urine RBC (Auto) 26.8 IBRAHIMA Screen IBRAHIMA Homogeneous Pattern COVID-19 (AIDE) Not detected 01/10/20 01/11/20 01:45 11:15 ESR Creatinine 1.4 H Est GFR (CKD-EPI)NonAf 59.41 Random Glucose 88 Calcium 8.3 L Phosphorus 2.0 L Magnesium 2.4 Total Bilirubin 0.7 AST 49 H ALT 72 H Alkaline Phosphatase 161 H Urine pH Ur Specific [place] Urine Protein Urine Glucose (UA) Urine Ketones Urine Blood Urine Nitrite Urine Bilirubin Urine Urobilinogen Ur Leukocyte Esterase Urine WBC (Auto) Urine RBC (Auto) IBRAHIMA Screen Positive H IBRAHIMA Homogeneous Pattern 1:160 H COVID-19 (AIDE) Problem List - Problems (1) Lupus Assessment/Plan: Patient admitted with pneumonia, lupus probably in remission. Initial elev ation of creatinine probably not related to lupus kidney disease. Plan: Continue with Hydroxychloroquine. Code(s): M32.9 - SYSTEMIC LUPUS ERYTHEMATOSUS, UNSPECIFIED
[2020-01-11] MEDS: guaiFENesin/CODEINE 10 ML UNIT-DOSE CUPS PO SCH (21:07)
[2020-01-11 21:44] LABS: PH,URINE 5.5 (5.0-8.0); URINE APPEARANCE Clear; URINE BILIRUBIN Negative (NEGATIVE); URINE COLOR Yellow; URINE GLUCOSE (UA) Negative (NEGATIVE); URINE KETONE Negative (NEGATIVE); URINE LEUK ESTERASE Negative (NEGATIVE); URINE NITRITE Negative (NEGATIVE); URINE PROTEIN 2+ (NEGATIVE); URINE UROBILINOGEN 0.2 mg/dL (0.2-1.0)
[2020-01-12] MEDS: SODIUM CHLORIDE 1,000 ML IV SCH ×2 (00:59→14:20)
[2020-01-12] MEDS: HEPARIN NA (PORCINE) 5,000 UNITS/ML 1ML VIAL SQ SCH ×3 (06:25→21:48)
[2020-01-12 07:49] LABS: HEMATOCRIT 36.4 % (35.4-49); HEMOGLOBIN 12.2 GM/dL (11.7-16.9); MCH 29.4 pg (25.7-33.7); MCHC 33.4 g/dl (32.0-35.9); MONO % 8.9 % (3.8-10.2); NEUT % 86.1 % (42.8-82.8); PLATELET COUNT 134 K/MM3 (134-434); RBC 4.14 M/mm3 (4.00-5.60); RDW 13.6 % (11.9-15.9); WHITE BLOOD COUNT 7.6 K/mm3 (4.0-10.0)
[2020-01-12 08:21] LABS: ALBUMIN 1.9 g/dl (3.4-5.0); BILIRUBIN,TOTAL 0.3 mg/dL (0.2-1); BLOOD UREA NITROGEN 16.6 mg/dL (7-18); CALCIUM 8.5 mg/dL (8.5-10.1); CREATININE 1.1 mg/dL (0.55-1.3); MAGNESIUM 2.5 mg/dL (1.8-2.4); PHOSPHOROUS 2.8 mg/dL (2.5-4.9); POTASSIUM 4.6 mmol/L (3.5-5.1); TOT PROT 6.4 g/dl (6.4-8.2)
[2020-01-12] MEDS ORDERED: DEXTROSE 5%-WATER 100 ML IVPB ONE (08:56)
[2020-01-12] MEDS ORDERED: PT OWN MED DRAWER 7, Y5N ONE (08:56)
[2020-01-12] MEDS: CEFTRIAXONE 2 GM in DEXTROSE 5%-WATER 100 ML IVPB SCH (09:07)
[2020-01-12] MEDS: DEXAMETHASONE SOD PHOSPHATE 4 MG/1 ML VIAL IVPUSH SCH (09:07)
[2020-01-12] MEDS: DOXYCYCLINE HYCLATE 100 MG CAPSULE PO SCH ×2 (09:08→17:47)
[2020-01-12] MEDS: HYDROXYCHLOROQUINE SO4 200 MG TABLET (FP) PO SCH (09:08)
--- NOTE | 2020-01-12 11:23 | PN ---
Progress Note, Physician History of Present Illness: spiked fevers yesterday today no fevers - Current Medication List Current Medications: Active Medications Dexamethasone Sodium Phosphate (Decadron Injection -) 6 mg IVPUSH DAILY [facility] Stop: 01/17/20 09:59 Last Admin: 01/12/20 09:07 Dose: 6 mg Documented by: Doxycycline Hyclate (Vibramycin -) 100 mg PO BID@1000,1800 [facility] Last Admin: 01/12/20 09:08 Dose: 100 mg Documented by: Guaifenesin (Diabetic Tussin Dm -) 5 ml PO Q6H PRN PRN Reason: COUGH Guaifenesin/Codeine Phosphate (Robitussin Ac -) 10 ml PO HS [facility] Last Admin: 01/11/20 21:07 Dose: 10 ml Documented by: Heparin Sodium (Porcine) (Heparin -) 5,000 unit SQ TID [facility] Last Admin: 01/12/20 06:25 Dose: 5,000 unit Documented by: Hydroxychloroquine Sulfate (Plaquenil -) 400 mg PO DAILY [facility] Last Admin: 01/12/20 09:08 Dose: 400 mg Documented by: Sodium Chloride (Normal Saline -) 1,000 mls @ 75 mls/hr IV ASDIR [facility] Last Admin: 01/12/20 00:59 Dose: 75 mls/hr Documented by: Ceftriaxone Sodium 2 gm/ (Dextrose) 100 mls @ 100 mls/hr IVPB DAILY [facility]; Protocol Last Admin: 01/12/20 09:07 Dose: 100 mls/hr Documented by: - Objective Vital Signs: Vital Signs Temperature 98.4 F 01/12/20 06:00 Pulse Rate 79 01/12/20 06:00 Respiratory Rate 20 01/12/20 06:00 Blood Pressure 133/90 01/12/20 06:00 O2 Sat by Pulse Oximetry (%) 98 01/12/20 06:00 Constitutional: Yes: No Distress, Calm Cardiovascular: Yes: S1, S2 Respiratory: Yes: Regular, CTA Bilaterally Gastrointestinal: Yes: Normal Bowel Sounds, Soft Neurological: Yes: Alert, Oriented Psychiatric: Yes: Alert, Oriented Labs: CBC, BMP 01/12/20 07:12 01/12/20 07:12 INR, PTT INR 1.34 (0.83-1.09) H 01/09/20 16:06 Assessment/Plan Problem List - Problems (1) Lupus Code(s): M32.9 - SYSTEMIC LUPUS ERYTHEMATOSUS, UNSPECIFIED (2) Rheumatoid arthritis Code(s): M06.9 - RHEUMATOID ARTHRITIS, UNSPECIFIED (3) Chest pain Code(s): R07.9 - CHEST PAIN, UNSPECIFIED (4) Fever Code(s): R50.9 - FEVER, UNSPECIFIED (5) Headache Code(s): R51 - HEADACHE (6) Pneumonia Code(s): J18.9 - PNEUMONIA, UNSPECIFIED ORGANISM (7) CKD (chronic kidney disease) Code(s): N18.9 - CHRONIC KIDNEY DISEASE, UNSPECIFIED Assessment/Plan 49 y.o. male with PMH of RA, SLE on Hydroxychloroquine, COVID + in August 2019, and obesity presents with c/o fever x 2 days, constant H/A, intermittent chest pain x 4 days CAP Lupus RA CKD Elevated LFTs Hx of COVID-19 fever leukocytosis monitor fever continue current mgmt rest as per the team
--- NOTE | 2020-01-12 12:11 | PN ---
Progress Note (short form) - Note Progress Note: Breathing feels a little better. Cough is better. Clinically appears improved. No hemoptysis. Intake & Output 01/09/20 01/10/20 01/11/20 01/12/20 23:59 23:59 23:59 23:59 Intake Total 10 3264 1800 450 Output Total 1999 1525 400 Balance 10 1264 275 50 Weight 210 lb 12.8 oz 210 lb 12.8 oz 203 lb 205 lb 6.4 oz Last Vital Signs Temp Pulse Resp BP Pulse Ox 98.6 F 89 18 142/92 99 01/12/20 10:00 01/12/20 10:00 01/12/20 10:00 01/12/20 10:00 01/12/20 10:00 Active Medications Dexamethasone Sodium Phosphate (Decadron Injection -) 6 mg IVPUSH DAILY [facility] Stop: 01/17/20 09:59 Last Admin: 01/12/20 09:07 Dose: 6 mg Documented by: Doxycycline Hyclate (Vibramycin -) 100 mg PO BID@1000,1800 [facility] Last Admin: 01/12/20 09:08 Dose: 100 mg Documented by: Guaifenesin (Diabetic Tussin Dm -) 5 ml PO Q6H PRN PRN Reason: COUGH Guaifenesin/Codeine Phosphate (Robitussin Ac -) 10 ml PO HS [facility] Last Admin: 01/11/20 21:07 Dose: 10 ml Documented by: Heparin Sodium (Porcine) (Heparin -) 5,000 unit SQ TID [facility] Last Admin: 01/12/20 06:25 Dose: 5,000 unit Documented by: Hydroxychloroquine Sulfate (Plaquenil -) 400 mg PO DAILY [facility] Last Admin: 01/12/20 09:08 Dose: 400 mg Documented by: Sodium Chloride (Normal Saline -) 1,000 mls @ 75 mls/hr IV ASDIR [facility] Last Admin: 01/12/20 00:59 Dose: 75 mls/hr Documented by: Ceftriaxone Sodium 2 gm/ (Dextrose) 100 mls @ 100 mls/hr IVPB DAILY [facility]; Protocol Last Admin: 01/12/20 09:07 Dose: 100 mls/hr Documented by: Constitutional: Yes: Well Nourished, No Distress, Calm Eyes: Yes: WNL, Conjunctiva Clear, EOM Intact HENT: Yes: Atraumatic, Normocephalic Neck: Yes: Supple, Trachea Midline Cardiovascular: Yes: Regular Rate and Rhythm Respiratory: Yes: Regular, Cough, Diminished, Dullness, On Nasal O2, Rhonchi, SOB on Exertion. No: Accessory Muscle Use, Rales, SOB, Stridor, Tachypnea, Wheezes ...Inspection: Yes: WNL ...Clubbing: No Gastrointestinal: Yes: Normal Bowel Sounds, Soft Renal/: Yes: WNL Musculoskeletal: Yes: WNL Extremities: Yes: WNL Edema: Yes Peripheral Pulses WNL: Yes Integumentary: Yes: WNL Neurological: Yes: WNL, Alert, Oriented ...Motor Strength: WNL Psychiatric: Yes: WNL, Alert, Oriented Labs: Laboratory Results - last 24 hr 01/10/20 01/10/20 01/11/20 01:45 01:45 11:15 WBC 7.6 RBC 4.49 Hgb 13.3 Hct 39.8 MCV 88.6 MCH 29.8 MCHC 33.6 RDW 13.6 Plt Count 116 L MPV 9.7 Absolute Neuts (auto) 6.7 Neutrophils % 88.1 H Lymphocytes % 4.5 L D Monocytes % 6.6 Eosinophils % 0.3 Basophils % 0.5 Nucleated RBC % 0 Sodium Potassium Chloride Carbon Dioxide Anion Gap BUN Creatinine Est GFR (CKD-EPI)AfAm Est GFR (CKD-EPI)NonAf POC Glucometer Random Glucose Calcium Phosphorus Magnesium Ferritin Total Bilirubin AST ALT Alkaline Phosphatase LD Total C-Reactive Protein Total Protein Albumin Urine Color Urine Appearance Urine pH Ur Specific [place] Urine Protein Urine Glucose (UA) Urine Ketones Urine Blood Urine Nitrite Urine Bilirubin Urine Urobilinogen Ur Leukocyte Esterase IBRAHIMA Screen Positive H IBRAHIMA Homogeneous Pattern 1:160 H IBRAHIMA Nucleolar Pattern TNP IBRAHIMA [place] Pattern TNP IBRAHIMA Midbody Pattern TNP IBRAHIMA Centriole Pattern TNP IBRAHIMA Nuclear Dot Pattern TNP IBRAHIMA PCNA Pattern TNP IBRAHIMA Nuclear Membr Pat TNP IBRAHIMA Speckled Pattern TNP IBRAHIMA Centromere Pattern TNP Hep C Ab Diagnostic 0.1 Ref Lab Notation 01/11/20 01/11/20 01/11/20 11:15 20:45 21:15 WBC RBC Hgb Hct MCV MCH MCHC RDW Plt Count MPV Absolute Neuts (auto) Neutrophils % Lymphocytes % Monocytes % Eosinophils % Basophils % Nucleated RBC % Sodium 137 Potassium 4.8 Chloride 104 Carbon Dioxide 27 Anion Gap 7 L BUN 11.0 Creatinine 1.4 H Est GFR (CKD-EPI)AfAm 68.85 Est GFR (CKD-EPI)NonAf 59.41 POC Glucometer 173 Random Glucose 88 Calcium 8.3 L Phosphorus 2.0 L Magnesium 2.4 Ferritin 1047.6 H Total Bilirubin 0.7 AST 49 H ALT 72 H Alkaline Phosphatase 161 H LD Total 242 C-Reactive Protein 48.5 H Total Protein 6.6 Albumin 2.2 L Urine Color Yellow Urine Appearance Clear Urine pH 5.5 Ur Specific [place] 1.015 Urine Protein 2+ H Urine Glucose (UA) Negative Urine Ketones Negative Urine Blood 1+ H Urine Nitrite Negative Urine Bilirubin Negative Urine Urobilinogen 0.2 Ur Leukocyte Esterase Negative IBRAHIMA Screen IBRAHIMA Homogeneous Pattern IBRAHIMA Nucleolar Pattern IBRAHIMA [place] Pattern IBRAHIMA Midbody Pattern IBRAHIMA Centriole Pattern IBRAHIMA Nuclear Dot Pattern IBRAHIMA PCNA Pattern IBRAHIMA Nuclear Membr Pat IBRAHIMA Speckled Pattern IBRAHIMA Centromere Pattern Hep C Ab Diagnostic Ref Lab Notation 01/12/20 01/12/20 07:12 07:12 WBC 7.6 RBC 4.14 Hgb 12.2 Hct 36.4 MCV 88.0 MCH 29.4 MCHC 33.4 RDW 13.6 Plt Count 134 MPV 9.0 Absolute Neuts (auto) 6.6 Neutrophils % 86.1 H Lymphocytes % 5.0 L Monocytes % 8.9 Eosinophils % 0.0 D Basophils % 0.0 Nucleated RBC % 0 Sodium 142 Potassium 4.6 Chloride 108 H Carbon Dioxide 27 Anion Gap 7 L BUN 16.6 Creatinine 1.1 Est GFR (CKD-EPI)AfAm 92.16 Est GFR (CKD-EPI)NonAf 79.52 POC Glucometer Random Glucose 114 H Calcium 8.5 Phosphorus 2.8 Magnesium 2.5 H Ferritin Total Bilirubin 0.3 AST 37 ALT 58 Alkaline Phosphatase 159 H LD Total C-Reactive Protein Total Protein 6.4 Albumin 1.9 L Urine Color Urine Appearance Urine pH Ur Specific [place] Urine Protein Urine Glucose (UA) Urine Ketones Urine Blood Urine Nitrite Urine Bilirubin Urine Urobilinogen Ur Leukocyte Esterase IBRAHIMA Screen IBRAHIMA Homogeneous Pattern IBRAHIMA Nucleolar Pattern IBRAHIMA [place] Pattern IBRAHIMA Midbody Pattern IBRAHIMA Centriole Pattern IBRAHIMA Nuclear Dot Pattern IBRAHIMA PCNA Pattern IBRAHIMA Nuclear Membr Pat IBRAHIMA Speckled Pattern IBRAHIMA Centromere Pattern Hep C Ab Diagnostic Ref Lab Notation Imaging - Results Chest X-ray: Report Reviewed, Image Reviewed Cat Scan: Report Reviewed, Image Reviewed Assessment/Plan IMP: RLL CAP PE ruled out History of COVID19 infection August 2019 Childhood Asthma Lupus Do not suspect Meningitis PLAN: ABX per ID Check sputum Supplemental O2 as needed Dexamethasone 6mg OD : Can DC after AM dose tomorrow No smoking BD TX PRN only VTE prophylaxis Dr Guallpa
--- NOTE | 2020-01-12 14:07 | PN ---
Progress Note (short form) - Note Progress Note: cc: headache s: no chest pain, palps, dizziness, dyspnea Current Medications Generic Name Dose Route Start Last Admin Trade Name Zohra PRN Reason Stop Dose Admin Dexamethasone Sodium Phosphate 6 mg 01/11/20 10:00 01/12/20 09:07 Decadron Injection - IVPUSH 01/17/20 09:59 6 mg DAILY [facility] Administration Doxycycline Hyclate 100 mg 01/10/20 15:28 01/12/20 09:08 Vibramycin - PO 100 mg BID@1000,1800 [facility] Administration Guaifenesin 5 ml 01/11/20 17:26 Diabetic Tussin Dm - PO Q6H PRN COUGH Guaifenesin/Codeine Phosphate 10 ml 01/11/20 22:00 01/11/20 21:07 Robitussin Ac - PO 10 ml HS [facility] Administration Heparin Sodium (Porcine) 5,000 unit 01/09/20 23:30 01/12/20 06:25 Heparin - SQ 5,000 unit TID [facility] Administration Hydroxychloroquine Sulfate 400 mg 01/11/20 10:00 01/12/20 09:08 Plaquenil - PO 400 mg DAILY [facility] Administration Sodium Chloride 1,000 mls @ 75 mls/hr 01/09/20 23:45 01/12/20 00:59 Normal Saline - IV 75 mls/hr ASDIR [facility]YA Administration Ceftriaxone Sodium 2 gm/ 100 mls @ 100 mls/hr 01/11/20 10:00 01/12/20 09:07 Dextrose IVPB 100 mls/hr DAILY [facility] Administration Protocol Vital Signs Period Temp Pulse Resp BP Sys/Baugh Pulse Ox Last 24 Hr 98.4 F-102.7 F 79-108 18-20 96-142/57-92 96-99 nad ncat, perrl no JVD CTAB soft, nt, nd, +bs rrr, nl s1, s2 no murmur no edema aox3 no jaundice, diaphoresis not agitated Assessment/Plan ECG: NSR, WNL echo 12/2019 nl LV/RV function, mild MR, mild ao sclerosis, no vegetation, no pericardial effusion sepsis, PNA, atypical CP - manage per primary, ID - echo unremarkable -trop neg x 2, ECG normal - no further cardiac workup at this point HTN: -bp controlled here SLE: -per hospitalist, rheum
--- NOTE | 2020-01-12 14:25 | PN ---
Progress Note, Physician History of Present Illness: Pt seen and examined at bedside. He is awake and alert. - Current Medication List Current Medications: Active Medications Dexamethasone Sodium Phosphate (Decadron Injection -) 6 mg IVPUSH DAILY [facility] Stop: 01/17/20 09:59 Last Admin: 01/12/20 09:07 Dose: 6 mg Documented by: Doxycycline Hyclate (Vibramycin -) 100 mg PO BID@1000,1800 [facility] Last Admin: 01/12/20 09:08 Dose: 100 mg Documented by: Guaifenesin (Diabetic Tussin Dm -) 5 ml PO Q6H PRN PRN Reason: COUGH Guaifenesin/Codeine Phosphate (Robitussin Ac -) 10 ml PO HS [facility] Last Admin: 01/11/20 21:07 Dose: 10 ml Documented by: Heparin Sodium (Porcine) (Heparin -) 5,000 unit SQ TID [facility] Last Admin: 01/12/20 14:22 Dose: 5,000 unit Documented by: Hydroxychloroquine Sulfate (Plaquenil -) 400 mg PO DAILY [facility] Last Admin: 01/12/20 09:08 Dose: 400 mg Documented by: Sodium Chloride (Normal Saline -) 1,000 mls @ 75 mls/hr IV ASDIR [facility] Last Admin: 01/12/20 14:20 Dose: 75 mls/hr Documented by: Ceftriaxone Sodium 2 gm/ (Dextrose) 100 mls @ 100 mls/hr IVPB DAILY [facility]; [place] Last Admin: 01/12/20 09:07 Dose: 100 mls/hr Documented by: - Objective Vital Signs: Vital Signs Temperature 98.6 F 01/12/20 10:00 Pulse Rate 89 01/12/20 10:00 Respiratory Rate 18 01/12/20 10:00 Blood Pressure 142/92 01/12/20 10:00 O2 Sat by Pulse Oximetry (%) 99 01/12/20 10:00 Constitutional: Yes: Calm Eyes: Yes: Conjunctiva Clear HENT: Yes: Atraumatic Cardiovascular: Yes: S1, S2 Respiratory: Yes: CTA Bilaterally Gastrointestinal: Yes: Soft Genitourinary: Yes: WNL Musculoskeletal: Yes: WNL Edema: No Integumentary: Yes: WNL Neurological: Yes: Oriented Psychiatric: Yes: Oriented Labs: CBC, BMP 01/12/20 07:12 01/12/20 07:12 INR, PTT INR 1.34 (0.83-1.09) H 01/09/20 16:06 Problem List - Problems (1) CKD (chronic kidney disease) Code(s): N18.9 - CHRONIC KIDNEY DISEASE, UNSPECIFIED (2) Chest pain Code(s): R07.9 - CHEST PAIN, UNSPECIFIED (3) Fever Code(s): R50.9 - FEVER, UNSPECIFIED (4) Headache Code(s): R51 - HEADACHE (5) Lupus Code(s): M32.9 - SYSTEMIC LUPUS ERYTHEMATOSUS, UNSPECIFIED (6) Rheumatoid arthritis Code(s): M06.9 - RHEUMATOID ARTHRITIS, UNSPECIFIED Assessment/Plan Current Medications Generic Name Dose Route Start Last Admin Trade Name Freq PRN Reason Stop Dose Admin Dexamethasone Sodium Phosphate 6 mg 01/11/20 10:00 01/12/20 09:07 Decadron Injection - IVPUSH 01/17/20 09:59 6 mg DAILY [facility] Administration Doxycycline Hyclate 100 mg 01/10/20 15:28 01/12/20 09:08 Vibramycin - PO 100 mg BID@1000,1800 [facility] Administration Guaifenesin 5 ml 01/11/20 17:26 Diabetic Tussin Dm - PO Q6H PRN COUGH Guaifenesin/Codeine Phosphate 10 ml 01/11/20 22:00 01/11/20 21:07 Robitussin Ac - PO 10 ml HS [facility] Administration Heparin Sodium (Porcine) 5,000 unit 01/09/20 23:30 01/12/20 14:22 Heparin - SQ 5,000 unit TID [facility] Administration Hydroxychloroquine Sulfate 400 mg 01/11/20 10:00 01/12/20 09:08 Plaquenil - PO 400 mg DAILY [facility] Administration Sodium Chloride 1,000 mls @ 75 mls/hr 01/09/20 23:45 01/12/20 14:20 Normal Saline - IV 75 mls/hr ASDIR [facility] Administration Ceftriaxone Sodium 2 gm/ 100 mls @ 100 mls/hr 01/11/20 10:00 01/12/20 09:07 Dextrose IVPB 100 mls/hr DAILY [facility] Administration Protocol Impression 1. CKD 2. SLE 3. headache 4. hx covid 5. asthma 6. htn 7. fever Plan - renal function continues to improve - ua however does show blood and protein, pt will follow with his certified ophthalmic technician after discharge - repeat ua once acute process is improved - abx per medical team - rheum input appreciated - fever workup in progress
[2020-01-12] MEDS ORDERED: SODIUM CHLORIDE 0.45% 1,000 ML IV SCH (14:30)
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
--- NOTE | 2020-01-12 18:27 | PN ---
Teaching Attending Note Name of Resident: Raúl Benson ATTENDING PHYSICIAN STATEMENT I saw and evaluated the patient. I reviewed the resident's note and discussed the case with the resident. I agree with the resident's findings and plan as documented. SUBJECTIVE: no fever or chills. no pain, no SLADE . he feels better . no SOB OBJECTIVE: NAD Cv: RRR Lungs: R base crackles Abd: sfot, NT, Nd EXt : No edema or erythema onupper or lower extremities ASSESSMENT AND PLAN: 49 y/o man with h/o HTN, SLE COVID + in 08/2019 , OA who presented with fever and SOB and was found to have RLL CAP. 1- s/p sepsis. due to RLL CAP. no suspicion for PE. CTA reviewed, could not evel for PE but clinical suspicion is very low and will not repeat - cont Abx day 3 - legionella neg - blood cx neg - monitor clinically. Much improved - dex to be stopped tomorrow 2- DICKSON : resolved. f/u with renal as out pt , due to suspicion fro chrnic disease and proteinuria /hematuria 3- Transaminitis : improved . due to sepsis 4- H/o Lupus : cont hydroxychloroquine HLOC ,possible dc tomorrow if cont to improve
[2020-01-12] MEDS: guaiFENesin/CODEINE 10 ML UNIT-DOSE CUPS PO SCH (21:48)
[2020-01-13] MEDS ORDERED: MELATONIN 5 MG TABLETS PO ONE (00:47)
[2020-01-13] MEDS: HEPARIN NA (PORCINE) 5,000 UNITS/ML 1ML VIAL SQ SCH ×2 (06:27→17:23)
[2020-01-13 08:59] LABS: BASO % 0.4 % (0-2.0); EOS % 0.2 % (0-4.5); HEMOGLOBIN 12.5 GM/dL (11.7-16.9); LYMPH % 5.7 % (8-40); MCH 29.3 pg (25.7-33.7); MCHC 33.7 g/dl (32.0-35.9); MEAN CELL VOLUME 87.1 fl (80-96); MEAN PLT VOLUME 8.6 fl (7.5-11.1); MONO % 9.8 % (3.8-10.2); NEUT % 83.9 % (42.8-82.8); PLATELET COUNT 179 K/MM3 (134-434); RBC 4.25 M/mm3 (4.00-5.60); RDW 13.7 % (11.9-15.9)
[2020-01-13] MEDS ORDERED: PT OWN MED DRAWER 7, Y5N ONE (09:11)
[2020-01-13] MEDS ORDERED: DEXTROSE 5%-WATER 100 ML IVPB ONE (09:12)
[2020-01-13] MEDS: HYDROXYCHLOROQUINE SO4 200 MG TABLET (FP) PO SCH (09:27)
[2020-01-13] MEDS: CEFTRIAXONE 2 GM in DEXTROSE 5%-WATER 100 ML IVPB SCH (09:27)
[2020-01-13] MEDS: DEXAMETHASONE SOD PHOSPHATE 4 MG/1 ML VIAL IVPUSH SCH (09:27)
[2020-01-13] MEDS: DOXYCYCLINE HYCLATE 100 MG CAPSULE PO SCH ×2 (09:28→17:23)
[2020-01-13 09:39] LABS: BILIRUBIN,TOTAL 0.3 mg/dL (0.2-1); BLOOD UREA NITROGEN 26.7 mg/dL (7-18); CALCIUM 9.1 mg/dL (8.5-10.1); CREATININE 1.2 mg/dL (0.55-1.3); MAGNESIUM 2.3 mg/dL (1.8-2.4); PHOSPHOROUS 3.8 mg/dL (2.5-4.9); POTASSIUM 4.2 mmol/L (3.5-5.1); TOT PROT 6.7 g/dl (6.4-8.2)
--- NOTE | 2020-01-13 10:50 | PN ---
Progress Note, Physician History of Present Illness: stable says becomes sob on moving - Current Medication List Current Medications: Active Medications Dexamethasone Sodium Phosphate (Decadron Injection -) 6 mg IVPUSH DAILY [facility] Stop: 01/17/20 09:59 Last Admin: 01/13/20 09:27 Dose: 6 mg Documented by: Doxycycline Hyclate (Vibramycin -) 100 mg PO BID@1000,1800 [facility] Last Admin: 01/13/20 09:28 Dose: 100 mg Documented by: Dongaifenesin (Diabetic Tussin Dm -) 5 ml PO Q6H PRN PRN Reason: COUGH Last Admin: 01/13/20 10:43 Dose: 5 ml Documented by: Guaifenesin/Codeine Phosphate (Robitussin Ac -) 10 ml PO HS [facility] Last Admin: 01/12/20 21:48 Dose: 10 ml Documented by: Heparin Sodium (Porcine) (Heparin -) 5,000 unit SQ TID [facility] Last Admin: 01/13/20 06:27 Dose: 5,000 unit Documented by: Hydroxychloroquine Sulfate (Plaquenil -) 400 mg PO DAILY [facility] Last Admin: 01/13/20 09:27 Dose: 400 mg Documented by: Sodium Chloride (1/2 Normal Saline) 1,000 mls @ 42 mls/hr IV ASDIR [facility] Last Admin: 01/12/20 17:47 Dose: 42 mls/hr Documented by: - Objective Vital Signs: Vital Signs Temperature 98.3 F 01/13/20 06:00 Pulse Rate 62 01/13/20 06:00 Respiratory Rate 20 01/13/20 06:00 Blood Pressure 143/91 01/13/20 06:00 O2 Sat by Pulse Oximetry (%) 96 01/13/20 06:00 Constitutional: Yes: No Distress, Calm Cardiovascular: Yes: Regular Rate and Rhythm Respiratory: Yes: Regular, CTA Bilaterally Gastrointestinal: Yes: Normal Bowel Sounds, Soft Musculoskeletal: Yes: WNL Extremities: Yes: WNL Neurological: Yes: Alert, Oriented Psychiatric: Yes: Alert, Oriented Labs: CBC, BMP 01/13/20 08:45 01/13/20 08:45 INR, PTT INR 1.34 (0.83-1.09) H 01/09/20 16:06 Assessment/Plan Problem List - Problems (1) Lupus Code(s): M32.9 - SYSTEMIC LUPUS ERYTHEMATOSUS, UNSPECIFIED (2) Rheumatoid arthritis Code(s): M06.9 - RHEUMATOID ARTHRITIS, UNSPECIFIED (3) Chest pain Code(s): R07.9 - CHEST PAIN, UNSPECIFIED (4) Fever Code(s): R50.9 - FEVER, UNSPECIFIED (5) Headache Code(s): R51 - HEADACHE (6) Pneumonia Code(s): J18.9 - PNEUMONIA, UNSPECIFIED ORGANISM (7) CKD (chronic kidney disease) Code(s): N18.9 - CHRONIC KIDNEY DISEASE, UNSPECIFIED Assessment/Plan 49 y.o. male with PMH of RA, SLE on Hydroxychloroquine, COVID + in August 2019, and obesity presents with c/o fever x 2 days, constant H/A, intermittent chest pain x 4 days CAP Lupus RA CKD Elevated LFTs Hx of COVID-19 fever leukocytosis has been afebrile will stop ceftriaxone continue doxy will d/w the team
--- NOTE | 2020-01-13 12:24 | PN ---
Progress Note, Physician History of Present Illness: Pt seen and examined at bedside. He is awake and alert. He complains of shortness of breath with ambulation. - Current Medication List Current Medications: Active Medications Dexamethasone Sodium Phosphate (Decadron Injection -) 6 mg IVPUSH DAILY [facility] Stop: 01/17/20 09:59 Last Admin: 01/13/20 09:27 Dose: 6 mg Documented by: Doxycycline Hyclate (Vibramycin -) 100 mg PO BID@1000,1800 [facility]PLACED BY [facility] Last Admin: 01/13/20 09:28 Dose: 100 mg Documented by: Dongaifenesin (Diabetic Tussin Dm -) 5 ml PO Q6H PRN PRN Reason: COUGH Last Admin: 01/13/20 10:43 Dose: 5 ml Documented by: Dongaifenesin/Codeine Phosphate (Robitussin Ac -) 10 ml PO HS [facility]PL[facility] Last Admin: 01/12/20 21:48 Dose: 10 ml Documented by: Heparin Sodium (Porcine) (Heparin -) 5,000 unit SQ TID [facility]PL[facility] BY [facility] Last Admin: 01/13/20 06:27 Dose: 5,000 unit Documented by: Hydroxychloroquine Sulfate (Plaquenil -) 400 mg PO DAILY [facility]PL[facility] BY [facility] Last Admin: 01/13/20 09:27 Dose: 400 mg Documented by: Sodium Chloride (1/2 Normal Saline) 1,000 mls @ 42 mls/hr IV ASDIR REPLACED BY [facility] Last Admin: 01/12/20 17:47 Dose: 42 mls/hr Documented by: - Objective Vital Signs: Vital Signs Temperature 98.3 F 01/13/20 06:00 Pulse Rate 62 01/13/20 06:00 Respiratory Rate 20 01/13/20 06:00 Blood Pressure 143/91 01/13/20 06:00 O2 Sat by Pulse Oximetry (%) 96 01/13/20 06:00 Constitutional: Yes: Calm Eyes: Yes: Conjunctiva Clear HENT: Yes: Atraumatic Neck: Yes: Supple Cardiovascular: Yes: S1, S2 Respiratory: Yes: CTA Bilaterally Gastrointestinal: Yes: Normal Bowel Sounds, Soft Genitourinary: Yes: WNL Musculoskeletal: Yes: WNL Edema: No Neurological: Yes: Oriented Psychiatric: Yes: Oriented Labs: CBC, BMP 01/13/20 08:45 01/13/20 08:45 INR, PTT INR 1.34 (0.83-1.09) H 01/09/20 16:06 Problem List - Problems (1) CKD (chronic kidney disease) Code(s): N18.9 - CHRONIC KIDNEY DISEASE, UNSPECIFIED (2) Chest pain Code(s): R07.9 - CHEST PAIN, UNSPECIFIED (3) Fever Code(s): R50.9 - FEVER, UNSPECIFIED (4) Headache Code(s): R51 - HEADACHE (5) Lupus Code(s): M32.9 - SYSTEMIC LUPUS ERYTHEMATOSUS, UNSPECIFIED (6) Rheumatoid arthritis Code(s): M06.9 - RHEUMATOID ARTHRITIS, UNSPECIFIED Assessment/Plan Current Medications Generic Name Dose Route Start Last Admin Trade Name Freq PRN Reason Stop Dose Admin Dexamethasone Sodium Phosphate 6 mg 01/11/20 10:00 01/13/20 09:27 Decadron Injection - IVPUSH 01/17/20 09:59 6 mg DAILY KENYA Administration Doxycycline Hyclate 100 mg 01/10/20 15:28 01/13/20 09:28 Vibramycin - PO 100 mg BID@1000,1800 KENYA Administration Guaifenesin 5 ml 01/11/20 17:26 01/13/20 10:43 Diabetic Tussin Dm - PO 5 ml Q6H PRN Administration COUGH Guaifenesin/Codeine Phosphate 10 ml 01/11/20 22:00 01/12/20 21:48 Robitussin Ac - PO 10 ml HS KENYA Administration Heparin Sodium (Porcine) 5,000 unit 01/09/20 23:30 01/13/20 06:27 Heparin - SQ 5,000 unit TID KENYA Administration Hydroxychloroquine Sulfate 400 mg 01/11/20 10:00 01/13/20 09:27 Plaquenil - PO 400 mg DAILY KENYA Administration Sodium Chloride 1,000 mls @ 42 mls/hr 01/12/20 14:30 01/12/20 17:47 1/2 Normal Saline IV 42 mls/hr ASDIR KENYA Administration Impression 1. CKD 2. SLE 3. headache 4. hx covid 5. asthma 6. htn 7. 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
--- NOTE | 2020-01-13 12:44 | PN ---
Progress Note (short form) - Note Progress Note: cc: headache s: no chest pain, palps, dizziness, dyspnea. Current Medications Generic Name Dose Route Start Last Admin Trade Name Ayoq PRN Reason Stop Dose Admin Dexamethasone Sodium Phosphate 6 mg 01/11/20 10:00 01/13/20 09:27 Decadron Injection - IVPUSH 01/17/20 09:59 6 mg DAILY KENYA Administration Doxycycline Hyclate 100 mg 01/10/20 15:28 01/13/20 09:28 Vibramycin - PO 100 mg BID@1000,1800 KENYA Administration Guaifenesin 5 ml 01/11/20 17:26 01/13/20 10:43 Diabetic Tussin Dm - PO 5 ml Q6H PRN Administration COUGH Guaifenesin/Codeine Phosphate 10 ml 01/11/20 22:00 01/12/20 21:48 Robitussin Ac - PO 10 ml HS KENYA Administration Heparin Sodium (Porcine) 5,000 unit 01/09/20 23:30 01/13/20 06:27 Heparin - SQ 5,000 unit TID KENYA Administration Hydroxychloroquine Sulfate 400 mg 01/11/20 10:00 01/13/20 09:27 Plaquenil - PO 400 mg DAILY KENYA Administration Vital Signs Period Temp Pulse Resp BP Sys/Baugh Pulse Ox Last 24 Hr 98.3 F-98.8 F 62-80 18-20 122-143/70-91 96-99 nad ncat, perrl no JVD CTAB soft, nt, nd, +bs rrr, nl s1, s2 no murmur no edema aox3 no jaundice, diaphoresis not agitated Assessment/Plan ECG: NSR, WNL echo 12/2019 nl LV/RV function, mild MR, mild ao sclerosis, no vegetation, no pericardial effusion sepsis, PNA, atypical CP - manage per primary, ID - echo unremarkable -trop neg x 2, ECG normal - no further cardiac workup at this point HTN: -bp controlled here SLE: -per hospitalist, rheum
--- NOTE | 2020-01-13 14:44 | PN ---
Progress Note (short form) - Note Progress Note: Breathing feels overall better. Clinically appears improved. No hemoptysis. Intake & Output 01/10/20 01/11/20 01/12/20 01/13/20 23:59 23:59 23:59 23:59 Intake Total 3264 1800 1444 Output Total 1999 1525 1150 500 Balance 1264 275 294 -500 Weight 210 lb 12.8 oz 203 lb 205 lb 6.4 oz 205 lb 4.8 oz Last Vital Signs Temp Pulse Resp BP Pulse Ox 98.3 F 87 20 143/91 93 L 01/13/20 06:00 01/13/20 13:57 01/13/20 06:00 01/13/20 06:00 01/13/20 13:57 Active Medications Dexamethasone Sodium Phosphate (Decadron Injection -) 6 mg IVPUSH DAILY [facility] Stop: 01/17/20 09:59 Last Admin: 01/13/20 09:27 Dose: 6 mg Documented by: Doxycycline Hyclate (Vibramycin -) 100 mg PO BID@1000,1800 [facility] Last Admin: 01/13/20 09:28 Dose: 100 mg Documented by: Guaifenesin (Diabetic Tussin Dm -) 5 ml PO Q6H PRN PRN Reason: COUGH Last Admin: 01/13/20 10:43 Dose: 5 ml Documented by: Guaifenesin/Codeine Phosphate (Robitussin Ac -) 10 ml PO HS [facility] Last Admin: 01/12/20 21:48 Dose: 10 ml Documented by: Heparin Sodium (Porcine) (Heparin -) 5,000 unit SQ TID [facility] Last Admin: 01/13/20 06:27 Dose: 5,000 unit Documented by: Hydroxychloroquine Sulfate (Plaquenil -) 400 mg PO DAILY [facility] Last Admin: 01/13/20 09:27 Dose: 400 mg Documented by: Constitutional: Yes: Well Nourished, No Distress, Calm Eyes: Yes: WNL, Conjunctiva Clear, EOM Intact HENT: Yes: Atraumatic, Normocephalic Neck: Yes: Supple, Trachea Midline Cardiovascular: Yes: Regular Rate and Rhythm Respiratory: Yes: Cough, Diminished. No: Accessory Muscle Use, Rales, SOB, Stridor, Tachypnea, Wheezes ...Inspection: Yes: WNL ...Clubbing: No Gastrointestinal: Yes: Normal Bowel Sounds, Soft Renal/: Yes: WNL Musculoskeletal: Yes: WNL Extremities: Yes: WNL Edema: Yes Peripheral Pulses WNL: Yes Integumentary: Yes: WNL Neurological: Yes: WNL, Alert, Oriented ...Motor Strength: WNL Psychiatric: Yes: WNL, Alert, Oriented Labs: Laboratory Results - last 24 hr 01/13/20 01/13/20 01/13/20 08:45 08:45 08:45 WBC 11.0 H RBC 4.25 Hgb 12.5 Hct 37.0 MCV 87.1 MCH 29.3 MCHC 33.7 RDW 13.7 Plt Count 179 D MPV 8.6 Absolute Neuts (auto) 9.2 H Neutrophils % 83.9 H Lymphocytes % 5.7 L Monocytes % 9.8 Eosinophils % 0.2 D Basophils % 0.4 D Nucleated RBC % 0 D-Dimer 2339 H Sodium 140 Potassium 4.2 Chloride 106 Carbon Dioxide 25 Anion Gap 9 BUN 26.7 H Creatinine 1.2 Est GFR (CKD-EPI)AfAm 82.96 Est GFR (CKD-EPI)NonAf 71.58 Random Glucose 98 Calcium 9.1 Phosphorus 3.8 Magnesium 2.3 Total Bilirubin 0.3 AST 61 H ALT 80 H Alkaline Phosphatase 169 H Total Protein 6.7 Albumin 2.0 L Imaging - Results Chest X-ray: Report Reviewed, Image Reviewed Cat Scan: Report Reviewed, Image Reviewed Assessment/Plan IMP: RLL CAP PE ruled out History of COVID19 infection August 2019 Childhood Asthma Lupus Do not suspect Meningitis PLAN: De-escalate to PO ABX Check Pre and Post ambulation O2 saturation DC Dexamethasone No smoking No Pulmonary contraindication for DC planning Dr Guallpa
[2020-01-13 15:26] VITALS: BP 138/85; PULSE 71; TEMP 98.5
--- NOTE | 2020-01-13 15:36 | PN ---
Teaching Attending Note Name of Resident: Raúl Benson ATTENDING PHYSICIAN STATEMENT I saw and evaluated the patient. I reviewed the resident's note and discussed the case with the resident. I agree with the resident's findings and plan as documented. SUBJECTIVE: No fever or chills. No pain in chest . No SOB . he feels much better and wants to go home OBJECTIVE: NAD Cv: RRR Lungs: R base crackles EXt: No edema or erythema on upper or lower extremities. ASSESSMENT AND PLAN: 49 y/o man with h/o HTN, SLE COVID + in 08/2019 , OA who presented with fever and SOB and was found to have RLL CAP. 1- S/p sepsis. due to RLL CAP. - cxray today read as R pleural effusion , but xray is rotated and patient deos not have any pleuritic chest pain. no suspicion for empyema as he is clinically better. this wa d/w Dr. chau . - repeat Cxray in 2 weeks - f/u with pulm - cont Abx orally for 1 week - chck pre-post ambulatory pulse ox 2- elevated d dimer.No suspicion fo PE as pulm sx were due to lobar PNA . Elevated d dimer could be due to the sepsis , in setting of PNA , but patient had covid in 09/13. unclear if he sitll has hypercoagulability form that . - will do US of legs. if + for DVT will treat as provoked DVt - if no DVT , will give prophylactic eliquis 5 BID for 2 months - will d/w patient risk of bleeding 3- DICKSON and transaminitis resolved. : resolved. f/u with renal as out pt , due to suspicion for chronic disease and proteinuria 4- H/o Lupus : cont hydroxychloroquine dc home today after US and pre-post
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
[2020-01-14 01:07] LABS: HEP B CORE AB, TOT Negative (Negative)
== END 2020-01-13 19:11 | disposition home or self-care (01) | DRG 871 ==
LOC: SUPCPDRO 14:56 → JER 14:56 → JERBED 19:08 → J8W 19:52
PROVIDERS: ADMIT Internal Medicine; ATTEND Internal Medicine
DX: A41.89 Other specified sepsis (principal); J18.9 Pneumonia, unspecified organism; N17.9 Acute kidney failure, unspecified; I31.3 Pericardial effusion (noninflammatory); E46 Unspecified protein-calorie malnutrition; M32.9 Systemic lupus erythematosus, unspecified; M06.9 Rheumatoid arthritis, unspecified; E88.09 Other disorders of plasma-protein metabolism, not elsewhere classified; E66.9 Obesity, unspecified; Z68.33 Body mass index [BMI] 33.0-33.9, adult; R94.5 Abnormal results of liver function studies; G43.909 Migraine, unspecified, not intractable, without status migrainosus; R00.0 Tachycardia, unspecified; D72.829 Elevated white blood cell count, unspecified; I12.9 Hypertensive chronic kidney disease with stage 1 through stage 4 chronic kidney disease, or unspecified chronic kidney disease; N18.9 Chronic kidney disease, unspecified; R06.6 Hiccough
CPT/HCPCS: 36415; 70450-TC; 71045-TC-FY; 71275-TC; 76705-TC; 76775-TC; 76856-TC; 80053; 81003; 82550; 82728; 82962; 83615; 83735; 84100; 84484; 85025; 85379; 85610; 85651; 85730; 86038; 86140; 86704; 86706; 86707; 86708; 86709; 86803; 87040; 87070; 87086; 87205; 87340; 87899; 93005; 93010; 93306-TC; 93970-TC; 94010; 94761; 99285-25; J0131; J1644; Q9967; U0003